=== PATIENT | female | born 1960 | race Caucasian/White ===

== ENCOUNTER → 2017-01-17 | Outpatient (REF) | payer BC ==
[2017-01-17 15:34] LABS: BASO # 0.1 K/mm3 (0.0-0.2); BASO % 0.9 % (0.0-1.0); EOS # 0.3 K/mm3 (0.0-0.50); EOS % 4.4 % (0.0-3.0); LARGE UNSTAINED CELL # 0.1 K/mm3 (0.0-0.4); LARGE UNSTAINED CELL % 1.4 % (0.0-4.0); LYMPH # 2.5 K/mm3 (1.5-4.5); LYMPH % 33.9 % (24.0-44.0); MEAN CORPUSCULAR HEMOGLOBIN 31.6 pg (27.0-33.0); MEAN CORPUSCULAR VOLUME 87.8 fl (80.0-96.0); MONO # 0.5 K/mm3 (0.0-0.8); MONO % 6.4 % (0.0-5.0); NEUTROPHILS # 3.8 K/mm3 (1.8-7.7); PLATELET COUNT, AUTOMATED 324 k/mm3 (150-450); RED CELL DISTRIBUTION WIDTH 12.1 % (11.5-14.5); WHITE BLOOD COUNT 7.2 K/mm3 (4.0-10.0)
[2017-01-17 17:02] LABS: ALBUMIN 3.5 GM/DL (3.2-5.2); ALBUMIN/GLOBULIN RATIO 1.06 (1.00-1.93); ALKALINE PHOSPHATASE 101 U/L (45-117); ALT/SGPT 19 U/L (12-78); ANION GAP 7 MEQ/L (8-16); AST/SGOT 17 U/L (15-37); BILIRUBIN,TOTAL 0.4 MG/DL (0.2-1.0); BLOOD UREA NITROGEN 20 MG/DL (7-18); CALCIUM LEVEL 8.8 MG/DL (8.5-10.1); CARBON DIOXIDE LEVEL 32 MEQ/L (21-32); CHLORIDE LEVEL 103 MEQ/L (98-107); CREATININE FOR GFR 1.03 MG/DL (0.55-1.02); GLOMERULAR FILTRATION RATE 59.4 (>51); GLUCOSE, FASTING 98 MG/DL (70-105); POTASSIUM SERUM 4.1 MEQ/L (3.5-5.1); SODIUM LEVEL 142 MEQ/L (136-145); TOTAL PROTEIN 6.8 GM/DL (6.4-8.2)
== END ==
LOC: M LABDRWLA 14:54
PROVIDERS: ATTEND Family Medicine
DX: I10 Essential (primary) hypertension (principal); E78.5 Hyperlipidemia, unspecified; E55.9 Vitamin D deficiency, unspecified

== ENCOUNTER → 2017-06-08 | Outpatient (REF) | payer BC ==
[~2017-06-08] MED LIST: ASPI325T28 PO; HYDR12CA PO; IRBE150T12 PO; TUMS750C20 PO; VITA100067 PO
== END ==
LOC: M SFHCPLAZ 09:08
PROVIDERS: ATTEND Family Medicine
DX: I10 Essential (primary) hypertension (principal)

== ENCOUNTER 2017-08-18 09:04 | Outpatient (CLI) | payer BC ==
[~2017-08-18] VITALS: Ht 162.6 cm; Wt 77.1 kg
[2017-08-18] MEDS ORDERED: NS 1,000 ML IV ONE (09:45)
[2017-08-18] MEDS ORDERED: PROPOFOL 200 MG/20 ML VIAL As Ordered ONE ×2 (10:21→10:29)
--- NOTE | 2017-08-18 10:57 | ROOR ---
Patient Name: Indy Hinton Procedure Date: 08/18/2017 10:09 AM Date of : 1960 Age: 57 Room: [facility] Gender: Female Note Status: Finalized Procedure: Colonoscopy Indications: Screening for colorectal malignant neoplasm Providers: Jose Montoya MD Referring MD: Nazario Roy MD Requesting Provider: Medicines: Monitored Anesthesia Care Complications: No immediate complications. Procedure: Pre-Anesthesia Assessment: - Prior to the procedure, a History and Physical was performed, and patient medications and allergies were reviewed. The patient is competent. The risks and benefits of the procedure and the sedation options and risks were discussed with the patient. All questions were answered and informed consent was obtained. Patient identification and proposed procedure were verified by the physician, the nurse and the manufacturing quality inspector in the procedure room. Mental Status Examination: alert and oriented. Airway Examination: normal oropharyngeal airway and neck mobility. Respiratory Examination: clear to auscultation. CV Examination: normal. Prophylactic Antibiotics: The patient does not require prophylactic antibiotics. Prior Anticoagulants: The patient has taken no previous anticoagulant or antiplatelet agents. ASA Grade Assessment: II - A patient with mild systemic disease. After reviewing the risks and benefits, the patient was deemed in satisfactory condition to undergo the procedure. The anesthesia plan was to use monitored anesthesia care (MAC). Immediately prior to administration of medications, the patient was re-assessed for adequacy to receive sedatives. The heart rate, respiratory rate, oxygen saturations, blood pressure, adequacy of pulmonary ventilation, and response to care were monitored throughout the procedure. The physical status of the patient was re-assessed after the procedure. The Colonoscope was introduced through the anus and advanced to the terminal ileum, with identification of the appendiceal orifice and IC valve. The colonoscopy was performed without difficulty. The patient tolerated the procedure well. The quality of the bowel preparation was good. The terminal ileum, ileocecal valve, appendiceal orifice, and rectum were photographed. Scope insertion time was 5 minutes. Scope withdrawal time was 12 minutes. The total duration of the procedure was 20 minutes. Findings: The perianal and digital rectal examinations were normal. The terminal ileum appeared normal. A 12 mm polyp was found in the cecum. The polyp was sessile. Area was successfully injected with 6 mL saline for a lift polypectomy. The polyp was removed with a hot snare. Resection and retrieval were complete. To close a defect after polypectomy, one hemostatic clip was successfully placed. There was no bleeding at the end of the procedure. Verification of patient identification for the specimen was done by the physician and nurse using the patient's name, date and medical record number. Estimated blood loss was minimal. A 8 mm polyp was found in the transverse colon. The polyp was sessile. The polyp was removed with a cold snare. Resection and retrieval were complete. Multiple small and large-mouthed diverticula were found in the sigmoid colon. There was no evidence of diverticular bleeding. Non-bleeding external and internal hemorrhoids were found during retroflexion. The hemorrhoids were small. Impression: - The examined portion of the ileum was normal. - One 12 mm polyp in the cecum, removed with a hot snare. Resected and retrieved. Injected. Clip was placed. - One 8 mm polyp in the transverse colon, removed with a cold snare. Resected and retrieved. - Moderate diverticulosis in the sigmoid colon. There was no evidence of diverticular bleeding. - Non-bleeding external and internal hemorrhoids. Recommendation: - Patient has a contact number available for emergencies. The signs and symptoms of potential delayed complications were discussed with the patient. Return to normal activities tomorrow. Written discharge instructions were provided to the patient. - High fiber diet. - Continue present medications. - Await pathology results. - Repeat colonoscopy in 3 - 5 years for surveillance based on pathology results. - Return to GI clinic as previously scheduled on 08/28/2017 at 11:15 AM. - Return to primary care physician. Jose Montoya MD Jose Montoya MD 08/18/2017 10:56:54 AM This report has been signed electronically. Number of Addenda: 0 Note Initiated On: 08/18/2017 10:09 AM Estimated Blood Loss: Estimated blood loss was minimal.
[2017-08-18 11:24] VITALS: BP 127/84
== END 2017-08-18 11:27 | disposition home or self-care (01) ==
LOC: M OPP 09:04
PROVIDERS: ATTEND Internal Medicine Gastroenterology
DX: Z12.11 Encounter for screening for malignant neoplasm of colon (principal); K63.5 Polyp of colon; K57.30 Diverticulosis of large intestine without perforation or abscess without bleeding; K64.8 Other hemorrhoids; K64.4 Residual hemorrhoidal skin tags; I10 Essential (primary) hypertension; J45.909 Unspecified asthma, uncomplicated; R06.83 Snoring; N28.1 Cyst of kidney, acquired; Z78.0 Asymptomatic menopausal state; Z88.2 Allergy status to sulfonamides; Z79.82 Long term (current) use of aspirin; Z79.899 Other long term (current) drug therapy; Z80.0 Family history of malignant neoplasm of digestive organs; Z80.1 Family history of malignant neoplasm of trachea, bronchus and lung; Z80.51 Family history of malignant neoplasm of kidney

== ENCOUNTER → 2017-11-04 | Outpatient (CLI) | payer BC ==
[2017-11-04 09:39] LABS: ESTIMATED AVERAGE GLUCOSE 114 MG/DL (60-110)
[2017-11-04 09:51] LABS: ALBUMIN 3.4 GM/DL (3.2-5.2); ALBUMIN/GLOBULIN RATIO 0.94 (1.00-1.93); ALKALINE PHOSPHATASE 97 U/L (45-117); ALT/SGPT 24 U/L (12-78); ANION GAP 6 MEQ/L (8-16); AST/SGOT 16 U/L (7-37); BILIRUBIN,TOTAL 0.5 MG/DL (0.2-1.0); BLOOD UREA NITROGEN 23 MG/DL (7-18); CARBON DIOXIDE LEVEL 32 MEQ/L (21-32); CHLORIDE LEVEL 104 MEQ/L (98-107); CHOLESTEROL LEVEL 226 MG/DL (<200); CREATININE FOR GFR 1.01 MG/DL (0.55-1.02); FERRITIN 75 NG/ML (8-252); GLOMERULAR FILTRATION RATE > 60.0 (>51); GLUCOSE, FASTING 84 MG/DL (70-105); PERCENT SATURATION 37.8 % (13.2-45.0); POTASSIUM SERUM 4.3 MEQ/L (3.5-5.1); SODIUM LEVEL 142 MEQ/L (136-145); TOTAL IRON BINDING CAPACITY 304 UG/DL (250-450); TRIGLYCERIDES LEVEL 86 MG/DL (<150)
[2017-11-06 10:53] LABS: VITAMIN B12 LEVEL 507 PG/ML (247-911)
== END ==
LOC: M LAB 08:38
DX: E78.2 Mixed hyperlipidemia (principal); Q61.9 Cystic kidney disease, unspecified; I10 Essential (primary) hypertension
CPT/HCPCS: 83550

== ENCOUNTER → 2017-11-14 | Outpatient (CLI) | payer BC | LOC: M WHC 15:39 | DX: Z12.31 Encounter for screening mammogram for malignant neoplasm of breast (principal) ==

== ENCOUNTER → 2018-02-16 | Outpatient (REF) | payer BC | LOC: M LAB REF 11:47 | DX: D23.9 Other benign neoplasm of skin, unspecified (principal) | CPT/HCPCS: 88305 ==

== ENCOUNTER → 2018-03-16 | Outpatient (REF) | payer BC | LOC: M SFHCPLAZ 15:48 | DX: L57.0 Actinic keratosis (principal) | CPT/HCPCS: 88305 ==

== ENCOUNTER 2018-05-13 20:57 | Emergency (ER) | payer BC ==
[2018-05-13] MEDS: LIDOCAINE 1% MDV 20ML VIAL IM (22:45)
[2018-05-13] MEDS: ADACEL/BOOSTRIX VACCINE (DIPHTH/PERTUSS/ACELL/TETANUS)0.5ML SYR (90715) IM (22:51)
== END 2018-05-13 23:50 | disposition home or self-care (01) ==
LOC: M ED 20:57
DX: S61.011A Laceration without foreign body of right thumb without damage to nail, initial encounter (principal); W26.8XXA Contact with other sharp object(s), not elsewhere classified, initial encounter; Y92.099 Unspecified place in other non-institutional residence as the place of occurrence of the external cause; Y93.9 Activity, unspecified; Y99.9 Unspecified external cause status; I10 Essential (primary) hypertension; J45.909 Unspecified asthma, uncomplicated; J44.9 Chronic obstructive pulmonary disease, unspecified; Z79.82 Long term (current) use of aspirin; Z79.899 Other long term (current) drug therapy; Z88.2 Allergy status to sulfonamides
CPT/HCPCS: 90715

== ENCOUNTER → 2018-05-17 | Outpatient (REF) | payer BC ==
[2018-05-17 16:22] LABS: ESTIMATED AVERAGE GLUCOSE 103 MG/DL (60-110); HEMOGLOBIN A1c 5.2 %
[2018-05-17 16:24] LABS: APPEARANCE, URINE CLEAR (CLEAR); BACTERIA, URINE AUTO 1+ (NEGATIVE); BILIRUBIN, URINE AUTO NEGATIVE (NEGATIVE); BLOOD, URINE BLOOD NEGATIVE (NEGATIVE); COLOR, URINE YELLOW (YELLOW); GLUCOSE, URINE (UA) AUTO NEGATIVE (NEGATIVE); KETONE, URINE AUTO NEGATIVE (NEGATIVE); LEUKOCYTE ESTERASE, URINE AUTO NEGATIVE (NEGATIVE); MUCUS, URINE SMALL (NEGATIVE); NITRITE, URINE AUTO NEGATIVE (NEGATIVE); PROTEIN, URINE AUTO NEGATIVE (NEGATIVE); RBC, URINE AUTO 1 /HPF (0-3); SPECIFIC GRAVITY URINE AUTO 1.015 (1.002-1.035); SQUAMOUS EPITHELIAL CELL UR AU 0 /HPF (0-6); UROBILINOGEN, URINE AUTO 0.2 mg/dL (0.0-2.0); WBC, URINE AUTO 1 /HPF (0-3)
[2018-05-17 16:30] LABS: PTH INTACT 40.2 PG/ML (18.5-88.0)
[2018-05-17 16:35] LABS: ALBUMIN 3.7 GM/DL (3.2-5.2); ALBUMIN/GLOBULIN RATIO 1.09 (1.00-1.93); ALKALINE PHOSPHATASE 105 U/L (45-117); ALT/SGPT 23 U/L (12-78); ANION GAP 9 MEQ/L (8-16); AST/SGOT 17 U/L (7-37); BILIRUBIN,TOTAL 0.7 MG/DL (0.2-1.0); BLOOD UREA NITROGEN 22 MG/DL (7-18); CALCIUM LEVEL 9.1 MG/DL (8.5-10.1); CARBON DIOXIDE LEVEL 30 MEQ/L (21-32); CHLORIDE LEVEL 101 MEQ/L (98-107); CREATININE FOR GFR 1.05 MG/DL (0.55-1.30); GLOMERULAR FILTRATION RATE 57.7 (>51); GLUCOSE, FASTING 94 MG/DL (70-100); SODIUM LEVEL 140 MEQ/L (136-145); TOTAL PROTEIN 7.1 GM/DL (6.4-8.2)
[2018-05-17 16:45] LABS: MALB URINE SIEMENS 79.3 MG/L; MAU/CREAT RATIO 62.9 MCG/MG (0.0-30.0)
[2018-05-25 13:34] LABS: INSULIN LEVEL 8.9 uIU/mL (2.6-24.9)
== END ==
LOC: M SFHCPLAZ 15:39
DX: E55.9 Vitamin D deficiency, unspecified (principal); R73.01 Impaired fasting glucose
CPT/HCPCS: 83525

== ENCOUNTER → 2018-10-25 | Outpatient (REF) | payer BC ==
[~2018-10-25] MED LIST changes: +ASPI-222 PO; -ASPI325T28 PO
[2018-10-25 12:14] LABS: BASO # 0.1 10^3/uL (0.0-0.2); BASO % 1.2 % (0.0-1.0); EOS # 0.2 10^3/uL (0.0-0.50); EOS % 2.9 % (0.0-3.0); HEMATOCRIT 44.4 % (36.0-47.0); LYMPH # 1.9 10^3/uL (1.5-4.5); MEAN CORPUSCULAR HEMOGLOBIN 30.2 pg (27.0-33.0); MEAN CORPUSCULAR HGB CONC 33.8 g/dl (32.0-36.5); MEAN CORPUSCULAR VOLUME 89.3 fl (80.0-96.0); MONO # 0.6 10^3/uL (0.0-0.8); NEUTROPHILS # 4.1 10^3/uL (1.8-7.7); NEUTROPHILS % 59.8 % (36.0-66.0); PLATELET COUNT, AUTOMATED 330 10^3/uL (150-450); RED BLOOD COUNT 4.97 10^6/uL (4.00-5.40); WHITE BLOOD COUNT 6.9 10^3/uL (4.0-10.0)
[2018-10-25 12:26] LABS: ALBUMIN 3.8 GM/DL (3.2-5.2); ALT/SGPT 22 U/L (12-78); BILIRUBIN,TOTAL 0.5 MG/DL (0.2-1.0); BLOOD UREA NITROGEN 23 MG/DL (7-18); C REACTIVE PROTEIN QUANTITATIV < 0.30 MG/DL (0.00-0.30); CALCIUM LEVEL 8.9 MG/DL (8.5-10.1); CARBON DIOXIDE LEVEL 29 MEQ/L (21-32); CHLORIDE LEVEL 102 MEQ/L (98-107); CHOLESTEROL LEVEL 228 MG/DL (<200); CREATININE FOR GFR 1.19 MG/DL (0.55-1.30); FREE T4 1.13 NG/DL (0.76-1.46); GLUCOSE, FASTING 93 MG/DL (70-100); HDL CHOLESTEROL 82 MG/DL (>40); LDL CHOLESTEROL 132 MG/DL (<100); NON-HDL-C 146 MG/DL; POTASSIUM SERUM 4.3 MEQ/L (3.5-5.1); SODIUM LEVEL 139 MEQ/L (136-145); TRIGLYCERIDES LEVEL 72 MG/DL (<150)
[2018-10-25 12:35] LABS: HEMOGLOBIN A1c 5.5 %
== END ==
LOC: M SFHCPLAZ 08:16
PROVIDERS: ATTEND Family Medicine
DX: I10 Essential (primary) hypertension (principal); R73.01 Impaired fasting glucose; E78.2 Mixed hyperlipidemia

== ENCOUNTER → 2019-05-14 | Outpatient (CLI) | payer BC ==
--- NOTE | 2019-05-14 22:45 | REP ---
Clinical: IUD positioning . Technique: Transabdominal pelvic ultrasound followed by transvaginal examination for better evaluation of the endometrium and adnexa. Findings: Bladder is unremarkable and measures 7.7 x 7.4 x 5.6 cm . Anteverted bicornuate appearing uterus measures 8.5 x 2.5 x 6.2 cm . The endometrial complex measures 4.7 mm thickness. IUD identified within the left uterine horn. Bilateral ovaries are normal in appearance. Right ovary measures 2.3 x 1.7 x 2.2 cm ; Left ovary measures 2.2 x 1.4 x 1.2 cm. No pelvic fluid or adnexal mass lesion. Impression: 1. 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
== END ==
LOC: M WHC 13:59
PROVIDERS: ATTEND Midwife
DX: Z30.430 Encounter for insertion of intrauterine contraceptive device (principal)

== ENCOUNTER → 2019-05-24 | Outpatient (REF) | payer BC ==
[2019-05-24 12:16] LABS: BASO # 0.1 10^3/uL (0.0-0.2); EOS # 0.2 10^3/uL (0.0-0.50); EOS % 4.7 % (0.0-3.0); HEMATOCRIT 42.4 % (36.0-47.0); HEMOGLOBIN 14.6 g/dl (12.0-15.5); LYMPH # 1.9 10^3/uL (1.5-4.5); LYMPH % 36.5 % (24.0-44.0); MEAN CORPUSCULAR HEMOGLOBIN 31.1 pg (27.0-33.0); MEAN CORPUSCULAR HGB CONC 34.4 g/dl (32.0-36.5); MEAN CORPUSCULAR VOLUME 90.4 fl (80.0-96.0); MONO # 0.4 10^3/uL (0.0-0.8); NEUTROPHILS # 2.6 10^3/uL (1.8-7.7); NEUTROPHILS % 49.6 % (36.0-66.0); PLATELET COUNT, AUTOMATED 331 10^3/uL (150-450); RED BLOOD COUNT 4.69 10^6/uL (4.00-5.40); WHITE BLOOD COUNT 5.2 10^3/uL (4.0-10.0)
[2019-05-24 12:20] LABS: APPEARANCE, URINE CLEAR (CLEAR); BACTERIA, URINE AUTO NEGATIVE (NEGATIVE); BILIRUBIN, URINE AUTO NEGATIVE (NEGATIVE); BLOOD, URINE BLOOD 1+ (NEGATIVE); COLOR, URINE YELLOW (YELLOW); GLUCOSE, URINE (UA) AUTO NEGATIVE (NEGATIVE); KETONE, URINE AUTO NEGATIVE (NEGATIVE); LEUKOCYTE ESTERASE, URINE AUTO NEGATIVE (NEGATIVE); NITRITE, URINE AUTO NEGATIVE (NEGATIVE); PROTEIN, URINE AUTO NEGATIVE (NEGATIVE); RBC, URINE AUTO 0 /HPF (0-3); SPECIFIC GRAVITY URINE AUTO 1.012 (1.002-1.035); SQUAMOUS EPITHELIAL CELL UR AU 0 /HPF (0-6); UROBILINOGEN, URINE AUTO 0.2 mg/dL (0.0-2.0); WBC, URINE AUTO 1 /HPF (0-3)
[2019-05-24 12:56] LABS: MALB URINE SIEMENS 28.3 MG/L; MAU/CREAT RATIO 24.3 MCG/MG (0.0-30.0)
[2019-05-24 13:00] LABS: ALBUMIN 3.5 GM/DL (3.2-5.2); BILIRUBIN,TOTAL 0.4 MG/DL (0.2-1.0); CALCIUM LEVEL 9.4 MG/DL (8.5-10.1); CREATININE FOR GFR 1.16 MG/DL (0.55-1.30); GLOMERULAR FILTRATION RATE 51.3 (>51); POTASSIUM SERUM 3.7 MEQ/L (3.5-5.1); TOTAL PROTEIN 6.6 GM/DL (6.4-8.2)
[2019-05-24 13:23] LABS: PTH INTACT 38.2 PG/ML (18.5-88.0); TOTAL 25(OH) VITAMIN D 60.4 NG/ML (30.0-100.0)
[2019-05-24 13:55] LABS: HEMOGLOBIN A1c 5.6 %
== END ==
LOC: M SFHCADAM 08:36
PROVIDERS: ATTEND Family Medicine
DX: Q61.9 Cystic kidney disease, unspecified (principal); R73.01 Impaired fasting glucose

== ENCOUNTER → 2019-05-24 | Outpatient (CLI) | payer BC ==
--- NOTE | 2019-05-24 15:50 | REPMRS ---
Patient History The patient states she has not had a clinical breast exam in over a year. Patient is postmenopausal and had first child at age 33. Family history of colorectal cancer at age 50 or over in paternal grandfather. No Hormone Replacement Therapy 3D TOMOSYNTHESIS WAS PERFORMED. The [facility] lifetime risk for breast cancer is 6.9%. Digital Woman Screen Mammo: May 24, 2019 - Exam #: [id number] Bilateral CC and MLO view(s) were taken. Technologist: Stacy Perkins, Technologist Prior study comparison: November 14, 2017, digital woman screen mammo performed at [facility]. December 25, 2015, digital woman screen mammo performed at [facility]. FINDINGS: The breast tissue is heterogeneously dense. This may lower the sensitivity of mammography. There has been no change in the appearance of the mammogram from the prior studies. There is a moderate amount of residual fibroglandular tissue which is fairly symmetric. There is no interval development of dominant mass, areas of architectural distortion, or clustered microcalcification typical of malignancy. Assessment: BI-RADS/ACR category 1 mammogram. Negative Mammogram. Recommendation Routine screening mammogram in 1 year (for women over age 40). This mammogram was interpreted with the aid of an FDA-approved computer-aided dectection system. Electronically Signed By: Alireza Hamilton MD 05/24/19 [id number]
--- NOTE | 2019-05-28 15:48 | DEXA ---
AP SPINE L1 - L4 1.029 -1.3 -0.4 LT FEMUR TOTAL 0.981 -0.2 0.5 LT NECK 0.887 -1.1 0.0 RT FEMUR TOTAL 1.056 0.4 1.1 RT NECK 0.905 -1.0 0.1 TOTAL BODY TOTAL OTHER COMMENTS: There is low bone density of the spine and hips. The density of the spine has decreased 5.9% since 12/25/2015. The density of the left hip has increased 1.6% since 12/25/2015. The density of the right hip has increased 1.9% since 12/25/2015. The decreased density of the spine does represent a significant change. The increased density of the left hip does not represent a significant change. The increased density of the right hip does not represent a significant change. FOLLOW-UP: Recommendation for the next bone density exam: 2 years. VINICIO
== END ==
LOC: M WHC 14:41
PROVIDERS: ATTEND Family Medicine
DX: Z12.31 Encounter for screening mammogram for malignant neoplasm of breast (principal); M85.80 Other specified disorders of bone density and structure, unspecified site; E55.9 Vitamin D deficiency, unspecified; Z78.0 Asymptomatic menopausal state

== ENCOUNTER → 2019-10-23 | Outpatient (REF) | payer BC ==
[~2019-10-23] MED LIST changes: -ASPI-222 PO; +ASPI-527 PO
[2019-10-23 12:47] LABS: BASO # 0.1 10^3/uL (0.0-0.2); BASO % 0.6 % (0.0-1.0); EOS # 0.3 10^3/uL (0.0-0.5); EOS % 2.6 % (0.0-3.0); HEMATOCRIT 45.2 % (36.0-47.0); HEMOGLOBIN 14.8 g/dl (12.0-15.5); LYMPH % 18.8 % (24.0-44.0); MEAN CORPUSCULAR HEMOGLOBIN 29.5 pg (27.0-33.0); MEAN CORPUSCULAR HGB CONC 32.7 g/dl (32.0-36.5); MEAN CORPUSCULAR VOLUME 90.2 fl (80.0-96.0); MONO # 0.8 10^3/uL (0.0-0.8); MONO % 7.1 % (0.0-5.0); NEUTROPHILS # 7.6 10^3/uL (1.5-8.5); NEUTROPHILS % 70.4 % (36.0-66.0); PLATELET COUNT, AUTOMATED 352 10^3/uL (150-450); RED BLOOD COUNT 5.01 10^6/uL (4.00-5.40); WHITE BLOOD COUNT 10.8 10^3/uL (4.0-10.0)
[2019-10-23 13:16] LABS: CREATININE,RANDOM URINE 36.1 MG/DL; TOTAL PROTEIN,RANDOM URINE 18.2 MG/DL (0.0-12.0)
[2019-10-23 13:20] LABS: HEMOGLOBIN A1c 5.8 %
[2019-10-23 13:24] LABS: ALBUMIN 3.5 GM/DL (3.2-5.2); ALT/SGPT 29 U/L (12-78); BILIRUBIN,TOTAL 0.6 MG/DL (0.2-1.0); BLOOD UREA NITROGEN 16 MG/DL (7-18); CALCIUM LEVEL 9.3 MG/DL (8.5-10.1); CARBON DIOXIDE LEVEL 30 MEQ/L (21-32); CHLORIDE LEVEL 101 MEQ/L (98-107); CHOLESTEROL LEVEL 235 MG/DL (<200); CHOLESTEROL RISK RATIO 2.611 (<5); CREATININE FOR GFR 0.99 MG/DL (0.55-1.30); GLOMERULAR FILTRATION RATE > 60.0 (>51); GLUCOSE, FASTING 80 MG/DL (70-100); HDL CHOLESTEROL 90 MG/DL (>40); LDL CHOLESTEROL 133 MG/DL (<100); NON-HDL-C 145 MG/DL; POTASSIUM SERUM 4.1 MEQ/L (3.5-5.1); SODIUM LEVEL 138 MEQ/L (136-145); TOTAL PROTEIN 6.9 GM/DL (6.4-8.2); TRIGLYCERIDES LEVEL 62 MG/DL (<150)
== END ==
LOC: M SFHCPLAZ 09:13
PROVIDERS: ATTEND Family Medicine
DX: R73.01 Impaired fasting glucose (principal); E78.2 Mixed hyperlipidemia; I10 Essential (primary) hypertension

== ENCOUNTER → 2020-04-21 | Outpatient (REF) | payer BC ==
[~2020-04-21] MED LIST changes: -IRBE150T12 PO; +IRBE150T7 PO
== END ==
LOC: M SFHCPLAZ 09:36
PROVIDERS: ATTEND Family Medicine
DX: L90.5 Scar conditions and fibrosis of skin (principal)

== ENCOUNTER → 2020-06-17 | Outpatient (CLI) | payer BC ==
--- NOTE | 2020-07-06 14:11 | REPMRS ---
Patient History The patient states she had a clinical breast exam in May 2020.Patient is postmenopausal and had first child at age 33. Family history of colorectal cancer at age 50 or over in paternal grandfather. No Hormone Replacement Therapy Digital Woman Screen Mammo: June 17, 2020 - Exam #: [id number] Bilateral CC and MLO view(s) were taken. Technologist: Lenka Waldrop, Technologist Prior study comparison: May 24, 2019, bilateral digital woman screen mammo performed at [facility]. November 14, 2017, digital woman screen mammo performed at [facility]. December 25, 2015, digital woman screen mammo performed at [facility]. FINDINGS: There are scattered fibroglandular densities. The Volpara volumetric breast density category is:B. There has been no change in the appearance of the mammogram from the prior studies. There is a mild amount of scattered fibroglandular density which is fairly symmetric. There is no interval development of dominant mass, architectural distortion, or grouped microcalcification suggestive of malignancy. 3-D tomosynthesis shows no additional findings. Assessment: BI-RADS/ACR category 1 mammogram. Negative Mammogram. Recommendation Routine screening mammogram of both breasts in 1 year (for women over age 40). This patient's Lifetime Breast Cancer Risk is estimated at 6.8 %. This mammogram was interpreted with the aid of an FDA-approved computer-aided dectection system. Electronically Signed By: Shahbaz Myles MD 07/06/20 [id number]
== END ==
LOC: M WHC 07:57
PROVIDERS: ATTEND Family Medicine
DX: Z12.31 Encounter for screening mammogram for malignant neoplasm of breast (principal); Z78.0 Asymptomatic menopausal state

== ENCOUNTER → 2020-09-05 | Outpatient (CLI) | payer BC ==
[2020-09-05 11:08] LABS: APPEARANCE, URINE CLEAR (CLEAR); BACTERIA, URINE AUTO NEGATIVE (NEGATIVE); BILIRUBIN, URINE AUTO NEGATIVE (NEGATIVE); BLOOD, URINE BLOOD 1+ (NEGATIVE); COLOR, URINE YELLOW (YELLOW); GLUCOSE, URINE (UA) AUTO NEGATIVE (NEGATIVE); KETONE, URINE AUTO NEGATIVE (NEGATIVE); LEUKOCYTE ESTERASE, URINE AUTO NEGATIVE (NEGATIVE); MUCUS, URINE SMALL (NEGATIVE); NITRITE, URINE AUTO NEGATIVE (NEGATIVE); PROTEIN, URINE AUTO NEGATIVE (NEGATIVE); RBC, URINE AUTO 5 /HPF (0-3); SPECIFIC GRAVITY URINE AUTO 1.013 (1.002-1.035); SQUAMOUS EPITHELIAL CELL UR AU 1 /HPF (0-6); UROBILINOGEN, URINE AUTO 0.2 mg/dL (0.0-2.0); WBC, URINE AUTO 0 /HPF (0-3)
[2020-09-05 11:24] LABS: HEMOGLOBIN A1c 5.1 %
[2020-09-05 11:38] LABS: ALBUMIN 3.3 GM/DL (3.2-5.2); ALT/SGPT 27 U/L (12-78); BILIRUBIN,TOTAL 0.4 MG/DL (0.2-1.0); BLOOD UREA NITROGEN 25 MG/DL (7-18); CARBON DIOXIDE LEVEL 32 MEQ/L (21-32); CHLORIDE LEVEL 105 MEQ/L (98-107); CREATININE FOR GFR 0.98 MG/DL (0.55-1.30); GLOMERULAR FILTRATION RATE > 60.0 (>51); GLUCOSE, FASTING 78 MG/DL (70-100); POTASSIUM SERUM 4.4 MEQ/L (3.5-5.1); SODIUM LEVEL 141 MEQ/L (136-145); TOTAL PROTEIN 6.4 GM/DL (6.4-8.2)
[2020-09-05 11:46] LABS: CREATININE, URINE 70.6 MG/DL; MALB URINE SIEMENS 39.5 MG/L; MAU/CREAT RATIO 55.9 MCG/MG (0.0-30.0)
[2020-09-07 11:09] LABS: PTH INTACT 49.8 PG/ML (18.5-88.0); TOTAL 25(OH) VITAMIN D 64.7 NG/ML (30.0-100.0)
== END ==
LOC: M LAB 09:38
PROVIDERS: ATTEND Family Medicine
DX: E55.9 Vitamin D deficiency, unspecified (principal); R73.01 Impaired fasting glucose

== ENCOUNTER → 2021-02-06 | Outpatient (CLI) | payer BC ==
[2021-02-06 10:31] LABS: BASO # 0.1 10^3/uL (0.0-0.2); BASO % 1.2 % (0.0-1.0); EOS # 0.3 10^3/uL (0.0-0.5); EOS % 5.1 % (0.0-3.0); HEMATOCRIT 43.3 % (36.0-47.0); HEMOGLOBIN 14.2 g/dl (12.0-15.5); LYMPH # 2.1 10^3/uL (1.5-5.0); LYMPH % 34.3 % (24.0-44.0); MEAN CORPUSCULAR HEMOGLOBIN 29.5 pg (27.0-33.0); MEAN CORPUSCULAR HGB CONC 32.8 g/dl (32.0-36.5); MEAN CORPUSCULAR VOLUME 89.8 fl (80.0-96.0); MONO # 0.6 10^3/uL (0.0-0.8); MONO % 9.4 % (2.0-8.0); NEUTROPHILS % 49.8 % (36.0-66.0); PLATELET COUNT, AUTOMATED 303 10^3/uL (150-450); RED BLOOD COUNT 4.82 10^6/uL (4.00-5.40); WHITE BLOOD COUNT 6.1 10^3/uL (4.0-10.0)
[2021-02-06 10:55] LABS: HEMOGLOBIN A1c 5.2 %
[2021-02-06 11:04] LABS: ALBUMIN 3.4 GM/DL (3.2-5.2); ALT/SGPT 27 U/L (12-78); BILIRUBIN,TOTAL 0.5 MG/DL (0.2-1.0); BLOOD UREA NITROGEN 19 MG/DL (7-18); CALCIUM LEVEL 8.9 MG/DL (8.5-10.1); CARBON DIOXIDE LEVEL 30 MEQ/L (21-32); CHLORIDE LEVEL 106 MEQ/L (98-107); CHOLESTEROL LEVEL 219 MG/DL (<200); CHOLESTEROL RISK RATIO 2.281 (<5); CREATININE FOR GFR 0.86 MG/DL (0.55-1.30); GLOMERULAR FILTRATION RATE > 60.0 (>51); GLUCOSE, FASTING 86 MG/DL (70-100); HDL CHOLESTEROL 96 MG/DL (>40); LDL CHOLESTEROL 113 MG/DL (<100); MAGNESIUM LEVEL 2.3 MG/DL (1.8-2.4); NON-HDL-C 123 MG/DL; POTASSIUM SERUM 4.3 MEQ/L (3.5-5.1); SODIUM LEVEL 140 MEQ/L (136-145); TOTAL PROTEIN 6.5 GM/DL (6.4-8.2); TRIGLYCERIDES LEVEL 48 MG/DL (<150)
== END ==
LOC: M LAB 09:41
PROVIDERS: ATTEND Family Medicine
DX: Q61.9 Cystic kidney disease, unspecified (principal); R73.01 Impaired fasting glucose; E78.2 Mixed hyperlipidemia

== ENCOUNTER → 2021-05-18 | Outpatient (REF) | payer BC | LOC: M LAB REF 19:08 | PROVIDERS: ATTEND Family Medicine | DX: L57.0 Actinic keratosis (principal) ==

== ENCOUNTER → 2021-07-18 | Outpatient (CLI) | payer BC ==
[2021-07-18 10:44] LABS: APPEARANCE, URINE CLEAR (CLEAR); BACTERIA, URINE AUTO NEGATIVE (NEGATIVE); BILIRUBIN, URINE AUTO NEGATIVE (NEGATIVE); BLOOD, URINE BLOOD NEGATIVE (NEGATIVE); COLOR, URINE YELLOW (YELLOW); GLUCOSE, URINE (UA) AUTO NEGATIVE (NEGATIVE); KETONE, URINE AUTO NEGATIVE (NEGATIVE); LEUKOCYTE ESTERASE, URINE AUTO NEGATIVE (NEGATIVE); MUCUS, URINE SMALL (NEGATIVE); NITRITE, URINE AUTO NEGATIVE (NEGATIVE); PROTEIN, URINE AUTO 1+ mg/dL (NEGATIVE); RBC, URINE AUTO 1 /HPF (0-3); SPECIFIC GRAVITY URINE AUTO 1.015 (1.002-1.035); SQUAMOUS EPITHELIAL CELL UR AU 2 /HPF (0-6); UROBILINOGEN, URINE AUTO 0.2 mg/dL (0.0-2.0); WBC, URINE AUTO 0 /HPF (0-3)
[2021-07-18 11:08] LABS: ALBUMIN 3.4 GM/DL (3.2-5.2); ALT/SGPT 27 U/L (12-78); BILIRUBIN,TOTAL 0.5 MG/DL (0.2-1.0); BLOOD UREA NITROGEN 15 MG/DL (7-18); CALCIUM LEVEL 9.3 MG/DL (8.5-10.1); CARBON DIOXIDE LEVEL 33 MEQ/L (21-32); CHLORIDE LEVEL 105 MEQ/L (98-107); CREATININE FOR GFR 0.98 MG/DL (0.55-1.30); GLOMERULAR FILTRATION RATE > 60.0 (>51); GLUCOSE, FASTING 92 MG/DL (70-100); SODIUM LEVEL 141 MEQ/L (136-145); TOTAL PROTEIN 6.8 GM/DL (6.4-8.2)
[2021-07-18 11:16] LABS: MAU/CREAT RATIO 97.3 MCG/MG (0.0-30.0)
[2021-07-19 13:49] LABS: PTH INTACT 41.3 PG/ML (18.5-88.0); TOTAL 25(OH) VITAMIN D 35.3 NG/ML (30.0-100.0)
== END ==
LOC: M LAB 10:18
PROVIDERS: ATTEND Family Medicine
DX: I10 Essential (primary) hypertension (principal)

== ENCOUNTER → 2021-08-18 | Outpatient (CLI) | payer BC | LOC: M LABSMTC 10:23 | PROVIDERS: ATTEND Anesthesiology | DX: Z01.818 Encounter for other preprocedural examination (principal); Z11.52 Encounter for screening for COVID-19 ==

== ENCOUNTER 2021-08-23 09:02 | Day surgery (SDC) | payer BC ==
[~2021-08-23] VITALS: Ht 165.1 cm; Wt 80.0 kg
[~2021-08-23 09:02] MED LIST changes: +NS 1,000 ML IV ONE
--- OUTSIDE RECORDS SUMMARY | 2021-08-23 09:05 | CCD | Continuity of Care Document ---
Author Author Indy RODRIGUEZ [facility] Organization Unknown Address [address], [address] [place] [address] Phone [phone] Care Team Providers Care Program Manager Rn Name Role Phone Nazario Roy M.D. AUTM [phone] Problems Active Problems Provider Date Essential hypertension Jose Montoya M.D. Onset: 06/06 Social History Type Date Description Comments Sex Unknown ETOH Use 2 A Week Tobacco Use Start: Unknown Non Smoker Allergies, Adverse Reactions, Alerts Active Allergies Criticality Reaction | Severity Comments Date Sulfa Unable to assess criticality 06/21/2017 Epinephrine Unable to assess criticality 06/24/2021 Medications Active Medications SIG Qnty Indications Ordering Provide r Date Clenpiq 10-3.5-12mg-GM -GM/160ML S olution take as directed per doctor's bowel prep instructions. 320ml Z12.1 1 Emmanuel Cabrera MD 06/24/[address] take 4 tabs by mouth prior to procedure per instructions. 4tabs Z12.11 Emmanuel Cabrera MD 06/24/2021 Hydrochlorothiazide 12.5mg Tablets take one tab by mouth every day. Unknown 00/[address] 1 by mouth every day Unknown Vitamin D (Ergocalciferol) 5000Unit Capsules daily Unknown Tums 500mg Chewtabs 2 daily Unknown Irbesartan 150mg Tablets 1 by mouth every day Unknown Immunizations Description No Information Available Vital Signs Date Vital Result Comment 06/24/2021 11:21am BP Systolic 122 mmHg BP Diastolic 82 mmHg Height 65 inches 5'5" Weight 181.00 lb BMI (Body Mass Index) 30.1 kg/m2 [place] Body Weight 125 lb Weight 82.102 kg BSA (Body Surface Area) 1.90 m2 06/21/2017 9:51am BP Systolic 118 mmHg BP Diastolic 64 mmHg Height 65 inches 5'5" Weight 173.00 lb BMI (Body Mass Index) 28.8 kg/m2 [place] Body Weight 125 lb Weight 78.473 kg BSA (Body Surface Area) 1.86 m2 Results Description No Information Available Procedures Description No Information Available Medical Devices Description No Information Available Encounters Description No Information Available Assessments Date Code Description Provider 06/24/2021 Z12.11 Encounter for screening for kyle gnant neoplasm of colon JOHNIE Arce 06/24/2021 Z86.010 Personal history of colonic poly ps JOHNIE Arce 06/24/2021 Z80.0 Family history of malignant neop lasm of digestive organs JOHNIE Arce Plan of Treatment Future Appointment(s):* 08/23/2021 2:00 am - Jose Montoya M.D. at [facility] 06/24/2021 - JOHNIE Arce* Z12.11 Encounter for screening for malignant neoplasm of colon * Z86.010 Personal history of colonic polyps * Z80.0 Family history of malignant neoplasm of digestive organs * * New Medication:* Clenpiq 10-3.5-12 mg-GM -GM/160ML * Dulcolax 5 mg * New Orders:* Colonoscopy, Ordered: 06/24/21 * Comments:* Will arrange for colonoscopy. Reviewed risks and benefits of the procedure, as well as other options, with the patient. Bowel prep procedure was discussed with patient, as well as risks and side effects associated with the bowel prep. Patient verbalized understanding of all of the above and is in agreement to proceed. Patient will seek medical attention for any acute changes. Will monitor. * Follow up:* As scheduled, sooner if needed. Functional Status Description No Information Available Mental Status Description No Information Available Referrals Description No Information Available
--- OUTSIDE RECORDS SUMMARY | 2021-08-23 09:05 | CCD | Continuity of Care Document ---
Author Author Indy RODRIGUEZ [facility] Organization Unknown Address [address], [address] [place] [address] Phone [phone] Care Team Providers Care Network Desktop Support Specialist Name Role Phone Nazario Roy M.D. AUTM [phone] Problems Active Problems Provider Date Essential hypertension [...] lb BMI (Body Mass Index) 30.1 kg/m2 [place] Body Weight 125 lb Weight 82.102 kg BSA (Body Surface Area) 1.90 m2 06/21/2017 9:51am BP Systolic 118 mmHg BP Diastolic 64 mmHg Height 65 inches 5'5" Weight 173.00 lb BMI (Body Mass Index) 28.8 kg/m2 [place] Body Weight 125 lb Weight 78.473 kg [...] digestive organs JOHNIE Arce Plan of Treatment 06/24/2021 - JOHNIE Arce* Z12.11 Encounter for [...]
--- OUTSIDE RECORDS SUMMARY | 2021-08-23 09:05 | CCD ---
Author Author [facility] Organization [facility] Address Unknown Phone Unavailable Care Team Providers Care Course Developer Name Role Phone Nazario Roy Unavailable PROBLEMS Type Condition ICD9-CM Code [id number] Code Onset Dates Condition S tatus W/U Status Risk SNOMED Code Notes Problem Mixed hyperlipidemia E78.2 Active confirmed 263477190 Problem Hypertension I10 Active confirmed 4429008 3 Problem Overweight E66.3 Active confirmed 255838401 Problem Breast cancer screening Z12.39 Active confirmed 055165352 Problem Borderline osteopenia M85.80 Active confirmed 718953443 Problem Vitamin D deficiency E55.9 Active confirmed 09318018 Problem 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 Active confirmed 2389 80436 Problem AK (actinic keratosis) L57.0 Active confirmed 070292266 Problem Recurrent UTI N39.0 Active confirmed 024078 001 Problem Primary osteoarthritis, right hand M19.041 Activ e confirmed 24049720 Problem Colon cancer screening Z12.11 Active confirmed 106998692 Problem Nummular eczema L30.0 Active confirmed 8141 8003 Problem 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 Active confirmed 23557809 Problem Cystic kidney disease Q61.9 Active confirmed 588492819 Problem Cervical cancer screening Z12.4 Active confirmed 294510936 Problem Family history of renal cancer Z80.51 Active confir med 451986684 Problem Asthma, mild persistent J45.30 Active confirmed 565147336 Problem Primary osteoarthritis of left hand M19.042 Acti ve confirmed 62315694 Problem Venous insufficiency of both lower extremities I87 .2 Active confirmed 554093628 Problem IFG (impaired fasting glucose) R73.01 Active confir med 660618482 Problem Hx of colonic polyp Z86.010 Active confirmed 971878613 ALLERGIES Allergen (clinical drug ingredient) Drug/Non Drug Allergy do cumented on EMR Reaction Allergy Type Onset Date Status Sulfa (for allergy use only) Lips and facial swelling Drug Allergy Active lidocaine Lidocaine([facility] Code:[address]-84) welts and itching Drug A llergy Active ENCOUNTERS from 1960 to 2021-07-23 Encounter Location Date Provider Diagnosis [facility] [address] [phone] [place] [address] 16 Jul, 2021 Nazario Kriill AK (actinic keratosis) L57.0 ; Hypertension I10 ; Nummular eczema L30.0 ; Hx of colonic polyp Z86.010 ; IFG (impaired fasting glucose) R73.01 ; Primary osteoarthritis of left hand M19.042 ; Colon cancer screening Z12.11 ; Mixed hyperlipidemia E78.2 ; Recurrent UTI N39.0 ; 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 ; Cystic kidney disease Q61.9 ; Borderline osteopenia M85.80 ; Asthma, mild persistent J45.30 ; Breast cancer screening Z12.39 ; Overweight E66.3 ; 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 ; Vitamin D deficiency E55.9 ; Family history of renal cancer Z80.51 ; Primary osteoarthritis, right hand M19.041 ; Venous insufficiency of both lower extremities I87.2 and Cervical cancer screening Z12.4 IMMUNIZATIONS Vaccine Route Administration Date Status Influenza Pharmacy Given IM Intramuscular Oct 12, 2019 Admini stered Influenza 18 yrs & older Flublok IM Intramuscular Oct 25, 2018 Administered Pneumococcal 0.5mL Prevnar 13 IM Intramuscular Nov 02, 2015 A dministered Influenza 6mo & up Fluzone IM Intramuscular Nov 29, 2013 Admi nistered Influenza 6mo & up Fluzone IM Intramuscular Aug 10, 2010 Admi nistered SOCIAL HISTORY Tobacco Use: Social History Observation Description Date Details (start date - stop date) Never Smoker Sex Assigned At : Social History Observation Description Sex Assigned At Unknown Language: Question Answer Notes Languages spoken: Polish Mandaeism: Question Answer Notes Mandaeism 13 [employer] Sexual Hx: Question Answer Notes Had sex in the last 12 months (vaginal, oral, or anal)? Yes Have you ever had an STD? No with Men only Use protection? No Alcohol Screening: Question Answer Notes Did you have a drink containing alcohol in the past year? Ye s Points 3 Interpretation Positive How often did you have six or more drinks on one occas ion in the past year? Never (0 points) How many drinks did you have on a typica l day when you were drinking in the past year? 3 or 4 (1 point) How often did you have a drink containing alcohol in t he past year? Two to four times a month (2 points) BMI Care Goal Follow-Up Question Answer Notes Above Normal BMI Follow-Up Giving encouragement to exercise Tobacco Use: Question Answer Notes Are you a: never smoker never smoker REASON FOR REFERRAL No Information VITAL SIGNS Weight 176 lbs Jul, Weight-kg 79.83 kg Jul, Height 65 in Jul, BMI 29.28 kg/m2 Jul, Heart Rate 84 /min Jul, Respiratory Rate 20 /min Jul, Temperature 98.3 degrees Fahrenheit Jul, Oximetry 98% Jul, Blood pressure systolic 120 mm Hg Jul, Blood pressure diastolic 78 mm Hg Jul, MEDICATIONS Medication SIG (Take, Route, Frequency, Duration) Notes Start Da te End Date Status Irbesartan 150 MG 1 tablet Orally at bedtime for 90 day(s) Active Xopenex HFA 45 MCG/ACT 2 puffs as needed Inhalation every 8 hrs prn wheeze for 90 day(s) Active Aspirin 325 MG 1 tablet Orally Once a day Active Vitamin D 5000 1 tab Orally Once a day for 90 Active Tums Ultra 1000 1000 MG 1 tablet Orally once daily Active Clobetasol Propionate 0.05 % 1 application to affected area Externally Twice a day x 5 days mamxium to psoriasis plaque for 30 day(s) Active Hydrochlorothiazide 12.5 MG 1 tablet Orally Once a day for 90 day(s) Active Peak Flow Meter _ as directed _ qd A ctive Ammonium Lactate 12 % 1 application to affected area Externally Twi ce a day Active PROCEDURES No Information RESULTS No Results REASON FOR VISIT 5 month MEDICAL (GENERAL) HISTORY Type Description Date Medical History asthma, mild intermittent, e nvironmentally induced specifically dog IgE 42, -HP panel Medical History hypertension, essential Medical History history of recurrent UTI/his tory of reimplantation of ureters at age 7/microscopic hematuria, chronic-with stable cystoscopy per Dr. 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 by Kirill Surgical History reimplantation of ureters, rigid cystosc opy age 7 Hospitalization History none Goals Section No Information Health Concerns No Information MEDICAL EQUIPMENT No Information MENTAL STATUS No Information FUNCTIONAL STATUS No Information ASSESSMENTS Encounter Date Diagnosis Assessment Notes Treatment Notes Treatm ent Clinical Notes Jul, AK (actinic keratosis) (ICD-10 - L57.0) 05/18/21 stable FBSE 05/18/21 4 mm thin AK sp cryo, TFT 12 sec; R mid lat forearm c LK focal severe atypia, R mid lat forearm AK c mild atypia both sp SB-ergo, 07/22/21 20D 5% 5FU for 3D DP 03/24/20 B extensor forearms each c 2 3 mm thin AKs; therefore, 5% FU x 21D; 04/21/20 into disintegration phase; therefore, stopped 02/16/18 R proximal thigh sp 2 thin 3/4 mm AKs sp c/c, in 10D will use 5% FU for 14D Jul, Hypertension (ICD-10 - I10) Good control on HCTZ 12.5 qAM/irbe 150 qhs 07/18/21 15/1.0, 4.0 06/2016 ramipril 10 qhs changed to Avapro 150 qhs 2 LD 10/2012 EKG NSR 69 bpm, LAD, inferior repolarization abnormalities, PRWP Jul, Nummular eczema (ICD-10 - L30.0) Continue Currelle BID entire body 03/2018 started LH BID x 7D c flares +/- QD for maintenance Jul, Hx of colonic polyp (ICD-10 - Z86.010) repeat colon 08/2020-Dr. Kincaid Jul, IFG (impaired fasting glucose) (ICD-10 - R73.01) no FH DM 07/18/21 (92, 12) 02/06/21 5.2 09/05/20 5.1 (78, 9) 03/23/20 5.8 (77, 6) 05/2019 5.6 10/2018 5.5 05/2018 5.2 C ELDA-IR 2 (94, 4) 06/2017 A1C 5.6 07/18/21 97 09/05/20 56 05/2019 24 05/2018 63 10/2017 51 06/2017 NEVA/creatinine 161 16 Jul, 2021 Primary osteoarthritis of left hand (ICD-10 - M1 9.042) mainly B basal joint R hand dominant 06/2017 to start home PT (clothes pin exercises) which worked well for R basal joint when did formal PT in 2015 Contingency: xray, hand PT Jul, Colon cancer screening (ICD-10 - Z12.11) colon as per colonic polyp Jul, Mixed hyperlipidemia (ICD-10 - E78.2) Continue dietary therapy 02/06/21 113/96/48 03/23/20 132/78/74 10/2018 132/82/72, <0.3 06/2017 lipids 124/84/86 02/06/21 1.9, 1.1 10/2018 TSH/FT4 1.8/1.1 Jul, Recurrent UTI (ICD-10 - N39.0) No recurrent symptoms 06/2016 UCX E coli 20K rxed c cipro 5D for 3D h/o classic symptoms-advised to c/b if sx not resolved Jul, Lichenoid dermatitis (ICD-10 - L28.0) No recurrent lesions 06/2016 L breast 11 o'clock 11 mm plaque present x 1Y 5 mm PB c/w LD c moderate atypia-LDE (lichenoid drug eruption) vs lichenoid keratosis; therefore, ACEI to ARB as per hypertension Jul, Cystic kidney disease (ICD-10 - Q61.9) baseline cr ~1.0 03/23/20 14.5, 89 05/2019 14.6, 90 01/2017 hgb stable at 14.8, 88 06/2017 B12 507 02/2020 stable US/cytology as per Aly (took care of brother who had RCC) 01/2016 normal cystoscopy-Aly 12/2015 [place] US c ? bladder mass; therefore, referred to Dr. Lu for repeat cystoscopy 12/2013, 12/2014 stable 10/2012 B cysts stable-R < 1cm; L dominant cyst lobulated and septated, slightly increased at 4.0/3.8/3.6 cm c/w 08/2007Jul, Borderline osteopenia (ICD-10 - M85.80) recheck BMD 05/2023 -1.1/-1.0/-1.3 c 2/2/-6% change cw 12/2015; therefore, CCR 12/2015 baseline BMD -0.3/0.2/-0.8 Jul, Asthma, mild persistent (ICD-10 - J45.30) Stable on rare Xopenex MDI improved c home air filtration system symptoms improved sx since loss of dog ideal PF 460 L/min (calculated 01/2015) Contingency: change to ARB 06/2016 stopped Symbicort 80 1 QD given no ADAMS c PF at baseline ~high 300s 09/2015 dropped to Symbicort 80 1 BID given qhs palpitations on 2 BID 05/2015 PF 400-420 s decrease at all exercise nor environmental cues 01/2015 baseline PF 380-420, decreasing to 160 c cleaning (~qM), but little change p exercise, Symbicort 80 2 pffs BID (used prior c success in 2007) and continue Xopenex prn 11/2014 started Xopenex MDI 2 pffs 30 minutes prior to environmental exposure (ani cleaning and cold exposure; rarely exercise), and check PFM with recheck in 6-8W Jul, Breast cancer screening (ICD-10 - Z12.39) 06/2020 B C1 mammogram Jul, Overweight (ICD-10 - E66.3) Encouraged weight loss Jul, Scalp psoriasis (ICD-10 - L40.9) ? h/o inverse in perineal region, advised if flare to c/b to see 01/2015 resolved within 1W, therefore wean to qohs, if stable p 6W, decrease to 2x qW 11/2014 started clobetasol foam qhs for nape of neck and external pinna, stop itching and Neutrogena 4% Neutar qhs 3x qW Jul, Vitamin D deficiency (ICD-10 - E55.9) 07/18/21 35, 9.3 41 09/05/20 65, 9, 50 05/2019 60, 9.4, 38 05/2018 31, 9.1, 40 01/2017 34, 8.8, 36 07/2016 vitamin D 36, 9.3, PTH 42 on D3 5K Jul, Family history of renal cancer (ICD-10 - Z80.51) treatment as per renal cysts Jul, Primary osteoarthritis, right hand (ICD-10 - M19 .041) as per L hand OA Jul, Venous insufficiency of both lower extremities ( ICD-10 - I87.2) mild BLE disease 06/2017 advised BLE compression Jul, Cervical cancer screening (ICD-10 - Z12.4) 05/2019 NILM-[employer] PLAN OF TREATMENT Medication Medication Name Sig Start Date Stop Date Irbesartan 150 MG 1 tablet Orally at bedtime for 90 day(s) Hydrochlorothiazide 12.5 MG 1 tablet Orally Once a day for 90 da y(s) Peak Flow Meter _ as directed _ qd Clobetasol Propionate 0.05 % 1 application to affected area Externally Twice a day x 5 days mamxium to psoriasis plaque for 30 day(s) Xopenex HFA 45 MCG/ACT 2 puffs as needed Inhalation every 8 hrs prn wheeze for 90 day(s) Aspirin 325 MG 1 tablet Orally Once a day Vitamin D 5000 1 tab Orally Once a day for 90 Tums Ultra 1000 1000 MG 1 tablet Orally once daily Ammonium Lactate 12 % 1 application to affected area Externally Twice a day Treatment Notes Assessment Notes Clinical Notes Breast cancer screening 06/2020 B C1 mamm ogram AK (actinic keratosis) 05/18/21 stable FB SE05/18/21 4 mm thin AK sp cryo, TFT 12 sec; R mid lat forearm c LK focal severe atypia, R mid lat forearm AK c mild atypia both sp SB-ergo, 07/22/21 20D 5% 5FU for 3D DP03/24/20 B extensor forearms each c 2 3 mm thin AKs; therefore, 5% FU x 21D; 04/21/20 into disintegration phase; therefore, stopped02/16/18 R proximal thigh sp 2 thin 3/4 mm AKs sp c/c, in 10D will use 5% FU for 14D Asthma, mild persistent Stable on rare X openex MDIimproved c home air filtration systemsymptoms improved sx since loss of dogideal PF 460 L/min (calculated 01/2015)Contingency: change to ARB06/2016 stopped Symbicort 80 1 QD g iven no ADAMS c PF at baseline ~high 300s111/2014 dropped to Symbicort 80 1 BID given qhs palpitations on 2 BID05/2015 PF 400-420 s decrease at all exercise nor environmental cues01/2015 baseline PF 380-420, decreasing to 160 c cleaning (~qM), but little change p exercise, Symbicort 80 2 pffs BID (used prior c success in 2007) and continue Xopenex prn1 started Xopenex MDI 2 pffs 30 minutes prior to environmental exposure (ani cleaning and cold exposure; rarely exercise), and check PFM with recheck in 6-8W Hypertension Good control on HCTZ 12.5 qAM/irbe 150 qhs07/18/21 15/1.0, 4.06/2016 ramipril 10 qhs changed to Avapro 150 qhs 2 LD10/2012 EKG NSR 69 bpm, LAD, inferior repolarization abnormalities, PRWP Scalp psoriasis ? h/o inverse in per ineal region, advised if flare to c/b to see01/2015 resolved within 1W, therefore wean to qohs, if stable p 6W, decrease to 2x qW11/2014 started clobetasol foam qhs for nape of neck and external pinna, stop itching and Neutrogena 4% Neutar qhs 3x qW Nummular eczema Continue Currelle BI D entire body03/2018 started LH BID x 7D c flares +/- QD for maintenance Overweight Encouraged weight lo ss Hx of colonic polyp repeat colon 08/2020 -Dr. Kincaid Family history of renal cancer treatment as per renal cysts IFG (impaired fasting glucose) no FH DM (92, 12)02/06/21 5.210/ 5.1 (78, 9)03/23/20 5.8 (77, 6)05/2019 5.612/2017 5. 5.2 C ELDA-IR 2 (94, 4)06/2017 A1C 5.69 567 247 6312 518 NEVA/c reatinine 161 Vitamin D deficiency 07/18/21 35, 9.3 411 65, 9, 507/2018 60, 9.4, 387/2017 31, 9.1, 403/2017 34, 8.8, 369/2016 vitamin D 36, 9.3, PTH 42 on D3 5K Primary osteoarthritis of left hand main ly B basal jointR hand dominant06/2017 to start home PT (clothes pin exercises) which worked well for R basal joint when did formal PT in 2016Contingency: xray, hand PT Venous insufficiency of both lower extremities mild BLE disease06/2017 advised BLE compression Colon cancer screening colon as per colo mike polyp Primary osteoarthritis, right hand as pe r L hand OA Cervical cancer screening 05/2019 NILM-[employer] [employer] Borderline osteopenia recheck BMD 05/2023 -1.1/-1.0/-1.3 c 2//-6% change cw 12/2015; therefore, baseline BMD -0.3/0.2/-0.8 Cystic kidney disease baseline cr ~1./ 14.5, 897/2018 14.6, 903/2016 hgb stable at 14.8, 888/2016 B12 5074/2020 stable US/cytology as per Aly (took care of brother who had RCC)01/2016 normal cystoscopy-Aly12/2015 [place] US c ? bladder mass; therefore, referred to Dr. Lu for repeat cystoscopy12/2013, 12/2014 /2012 B cysts stable-R < 1cm; L dominant cyst lobulated and septated, slightly increased at 4.0/3.8/3.6 cm c/w 08/2007 Mixed hyperlipidemia Continue dietary th erapy02/06/21 113/96/485/ 132//2017 132/82/72, <0. lipids 124/84/864/01/24 1.9, 1.112/2017 TSH/FT4 1.8/1.1 Recurrent UTI No recurrent symptom UCX E coli 20K rxed c cipro 5D for 3D h/o classic symptoms-advised to c/b if sx not resolved Lichenoid dermatitis No recurrent lesion L breast 11 o'clock 11 mm plaque present x 1Y 5 mm PB c/w LD c moderate atypia-LDE (lichenoid drug eruption) vs lichenoid keratosis; therefore, ACEI to ARB as per hypertension Treatment Notes Test Name Order Date [facility] Attila Screening Bilateral (Ultrasound if Indicated ) (3D Mammo) 2021-07-22 Coronavirus 2019 NOSE (Send Out) COVID 2021-07-22 Future Test Test Name Order Date Comprehensive Metabolic Profile (CMP) 20211121 CBC with Differential 20211121 NT-PRO BNP 20211121 HEMOGLOBIN A1c 20211121 LIPID PANEL (CARDIAC RISK) 20211121 C REACTIVE PROTEIN QUANTITATIV (At [facility]) 20211121 FREE T4 & TSH PANEL 20211121 Next Appt Details 5M, BW 1W prior Reason: Provider Name:Nazario Roy, 2021-12-24 0 1:00:00 PM, [address], , [place], [address], Insurance Providers Payer Name Payer Address Payer Phone Insured Name Patient Relati onship to Insured Coverage Start Date Coverage End Date BCBS [place] P[place] [phone] [facility] [place] [address] JALEN HINTON self
--- OUTSIDE RECORDS SUMMARY | 2021-08-23 09:05 | CCD | Continuity of Care Document ---
Author Author [facility] Organization Unknown Address [address], [address] [place] [address] Phone [phone] Care Team Providers Care Medical Terminologist Name Role Phone Nazario Roy M.D. AUTM [phone] Problems Active Problems Provider Date Essential hypertension [...] lb BMI (Body Mass Index) 30.1 kg/m2 [place] Body Weight 125 lb Weight 82.102 kg BSA (Body Surface Area) 1.90 m2 06/21/2017 9:51am BP Systolic 118 mmHg BP Diastolic 64 mmHg Height 65 inches 5'5" Weight 173.00 lb BMI (Body Mass Index) 28.8 kg/m2 [place] Body Weight 125 lb Weight 78.473 kg [...]
--- OUTSIDE RECORDS SUMMARY | 2021-08-23 09:05 | CCD | Continuity of Care Document ---
Author Author [facility] Organization Unknown Address [address], [address] [place] [address] Phone [phone] Care Team Providers Care Statistics Manager Name Role Phone Nazario Roy M.D. AUTM [phone] Problems Active Problems Provider Date Essential hypertension [...] lb BMI (Body Mass Index) 30.1 kg/m2 [place] Body Weight 125 lb Weight 82.102 kg BSA (Body Surface Area) 1.90 m2 06/21/2017 9:51am BP Systolic 118 mmHg BP Diastolic 64 mmHg Height 65 inches 5'5" Weight 173.00 lb BMI (Body Mass Index) 28.8 kg/m2 [place] Body Weight 125 lb Weight 78.473 kg [...]
--- OUTSIDE RECORDS SUMMARY | 2021-08-23 09:06 | CCD ---
Author Author [facility] Organization [facility] Address Unknown Phone Unavailable Care Team Providers Care Janitorial Maintenance Worker Name Role Phone Nazario Roy Unavailable PROBLEMS Type Condition ICD9-CM Code [id number] Code Onset Dates Condition S tatus W/U Status Risk SNOMED Code Notes Problem Mixed hyperlipidemia E78.2 Active confirmed 555560710 Problem Hypertension I10 Active confirmed 5146417 3 Problem Overweight E66.3 Active confirmed 018075985 Problem Breast cancer screening Z12.39 Active confirmed 519766247 Problem Borderline osteopenia M85.80 Active confirmed 869198609 Problem Vitamin D deficiency E55.9 Active confirmed 33918770 Problem 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 Active confirmed 2389 46798 Problem AK (actinic keratosis) L57.0 Active confirmed 306527070 Problem Recurrent UTI N39.0 Active confirmed 410440 001 Problem Primary osteoarthritis, right hand M19.041 Activ e confirmed 37442928 Problem Colon cancer screening Z12.11 Active confirmed 641939990 Problem Nummular eczema L30.0 Active confirmed 8141 8003 Problem 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 Active confirmed 88259773 Problem Cystic kidney disease Q61.9 Active confirmed 994202319 Problem Cervical cancer screening Z12.4 Active confirmed 077233363 Problem Family history of renal cancer Z80.51 Active confir med 242134351 Problem Asthma, mild persistent J45.30 Active confirmed 685910761 Problem Primary osteoarthritis of left hand M19.042 Acti ve confirmed 98381317 Problem Venous insufficiency of both lower extremities I87 .2 Active confirmed 681299318 Problem IFG (impaired fasting glucose) R73.01 Active confir med 026983018 Problem Hx of colonic polyp Z86.010 Active confirmed 479202342 ALLERGIES Allergen (clinical drug ingredient) Drug/Non Drug Allergy do cumented on EMR Reaction Allergy Type Onset Date Status Sulfa (for allergy use only) Lips and facial swelling Drug Allergy Active lidocaine Lidocaine([facility] Code:[address]-93) welts and itching Drug A llergy Active ENCOUNTERS from 1960 to 2021-05-26 Encounter Location Date Provider Diagnosis [facility] [address] [phone] [place] [address] May, Nazario Roy Sutured skin wound T14.8XXA IMMUNIZATIONS Vaccine Route Administration Date Status Influenza [...] Unknown Language: Question Answer Notes Languages spoken: Congolese Restorationist: Question Answer Notes Restorationist 13 Evangelical Sexual Hx: Question Answer Notes Had sex [...] REASON FOR REFERRAL No Information VITAL SIGNS No information MEDICATIONS Medication SIG (Take, Route, Frequency, Duration) Notes Start Da te End Date Status Hydrochlorothiazide 12.5 MG 1 tablet Orally Once a day for 90 day(s) Active Vitamin D 5000 1 tab Orally Once a day for 90 Active Ammonium Lactate 12 % 1 application to affected area Externally Twi ce a day Active Tums Ultra 1000 1000 MG 1 tablet Orally once daily Active Aspirin 325 MG 1 tablet Orally Once a day Active Xopenex HFA 45 MCG/ACT 2 puffs as needed Inhalation every 8 hrs prn wheeze for 90 day(s) Active Irbesartan 150 MG 1 tablet Orally at bedtime for 90 day(s) Active Peak Flow Meter _ as directed _ qd A ctive Clobetasol Propionate 0.05 % 1 application to affected area Externally Twice a day x 5 days mamxium to psoriasis plaque for 30 day(s) Active PROCEDURES from 1960 to 2021-05-26 Procedure Date Ordered Result Body Site Suture Removal 2021-05-26 N/A RESULTS No Results REASON FOR VISIT first AM or afternoon apt-5M, BW 1W prior MEDICAL (GENERAL) HISTORY Type Description Date Medical [...] Notes Treatment Notes Treatm ent Clinical Notes May, Sutured skin wound (ICD-10 - T14.8XXA) PLAN OF TREATMENT Medication Medication Name Sig Start Date Stop Date Hydrochlorothiazide 12.5 MG 1 tablet Orally Once a day for 90 da y(s) Irbesartan 150 MG 1 tablet Orally at bedtime for 90 day(s) Peak Flow Meter _ as directed _ qd Xopenex HFA 45 MCG/ACT 2 puffs as needed Inhalation every 8 hrs prn wheeze for 90 day(s) Vitamin D 5000 1 tab Orally Once a day for 90 Ammonium Lactate 12 % 1 application to affected area Externally Twice a day Tums Ultra 1000 1000 MG 1 tablet Orally once daily Aspirin 325 MG 1 tablet Orally Once a day Clobetasol Propionate 0.05 % 1 application to affected area Externally Twice a day x 5 days mamxium to psoriasis plaque for 30 day(s) Next Appt Details Provider Name:Nazario Roy, 2021-07-22 0 1:00:00 PM, [address] [place] [address], , [place], [address], Insurance Providers Payer Name Payer Address Payer Phone Insured Name Patient Relati onship to Insured Coverage Start Date Coverage End Date BCBS JASON URRUTIA O [id number] [place] [address] JALEN HINTON self
--- OUTSIDE RECORDS SUMMARY | 2021-08-23 09:06 | CCD ---
Author Author [facility] Organization [facility] Address Unknown Phone Unavailable Care Team Providers Care Preparatory Technician Name Role Phone Martell, Jihan GIN OPERATOR Unavailable Unavailable Martell, Jihan GIN OPERATOR Unavailable Unavailable Martell, Jihan GIN OPERATOR Unavailable Unavailable Martell, Jihan GIN OPERATOR Unavailable Unavailable Martell, Jihan GIN OPERATOR Unavailable Unavailable Martlel, Jihan GIN OPERATOR Unavailable Unavailable Martell, Jihan GIN OPERATOR Unavailable Unavailable Martell, Jihan GIN OPERATOR Unavailable Unavailable Martell, Jihan GIN OPERATOR Unavailable Unavailable Martell, Jihan GIN OPERATOR Unavailable Unavailable Martell, Jihan GIN OPERATOR Unavailable Unavailable Martell, Jihan GIN OPERATOR Unavailable Unavailable Martell, Jihan GIN OPERATOR Unavailable Unavailable Martell, Jihan GIN OPERATOR Unavailable Unavailable Martell, Jihan GIN OPERATOR Unavailable Unavailable Martell, Jihan GIN OPERATOR Unavailable Unavailable Martell, Jihan GIN OPERATOR Unavailable Unavailable Martell, Jihan GIN OPERATOR Unavailable Unavailable Martell, Jihan GIN OPERATOR Unavailable Unavailable Martell, Jihan GIN OPERATOR Unavailable Unavailable Martell, Jihan GIN OPERATOR Unavailable Unavailable Martell, Jihan GIN OPERATOR Unavailable Unavailable Alda MASON MD Unavailable Unavailable Alda MASON MD Unavailable Unavailable Alda MASON MD Unavailable Unavailable Alda MASON MD Unavailable Unavailable Alda MASON MD Unavailable Unavailable Alda MASON MD Unavailable Unavailable Alda MASON MD Unavailable Unavailable Alda MASON MD Unavailable Unavailable Alda MASON MD Unavailable Unavailable Alda MASON MD Unavailable Unavailable ALBALA, Alda ORO MD Unavailable Unavailable ALBALA, Alda ORO MD Unavailable Unavailable ALBALA, Alda ORO MD Unavailable Unavailable ALBALA, Alda ORO MD Unavailable Unavailable ALBALA, Alda ORO MD Unavailable Unavailable ALBALA, Alda ORO MD Unavailable Unavailable ALBALA, Alda ORO MD Unavailable Unavailable ALBALA, Alda ORO MD Unavailable Unavailable ALBALA, Alda ORO MD Unavailable Unavailable ALBALA, Alda ORO MD Unavailable Unavailable ALBALA, Alda ORO MD Unavailable Unavailable ALBALA, Alda ORO MD Unavailable Unavailable ALBALA, Alda ORO MD Unavailable Unavailable ALBALA, Alda ORO MD Unavailable Unavailable ALBALA, Alda ORO MD Unavailable Unavailable ALBALA, Alda ORO MD Unavailable Unavailable ALBALA, Alda ORO MD Unavailable Unavailable ALBALA, Alda ORO MD Unavailable Unavailable ALBALA, Alda ORO MD Unavailable Unavailable ALBALA, Alda ORO MD Unavailable Unavailable ALBALA, Alda ORO MD Unavailable Unavailable ALBALA, Alda ORO MD Unavailable Unavailable ALBALA, Alda ORO MD Unavailable Unavailable ALBALA, Alda ORO MD Unavailable Unavailable ALBALA, Alda ORO MD Unavailable Unavailable ALBALA, Alda ORO MD Unavailable Unavailable ALBALA, Alda ORO MD Unavailable Unavailable ALBALA, Alda ORO MD Unavailable Unavailable ALBALA, Alda ORO MD Unavailable Unavailable ALBALA, Alda ORO MD Unavailable Unavailable ALBALA, Alda ORO MD Unavailable Unavailable ALBALA, Alda ORO MD Unavailable Unavailable ALBALA, Alda ORO MD Unavailable Unavailable ALBALA, Alda ORO MD Unavailable Unavailable ALBALA, Alda ORO MD Unavailable Unavailable ALBALA, Alda ORO MD Unavailable Unavailable ALBALA, Alda ORO MD Unavailable Unavailable ALBALA, Alda ORO MD Unavailable Unavailable ALBALA, Alda ORO MD Unavailable Unavailable ALBALA, Alda ORO MD Unavailable Unavailable ALBALA, Alda ORO MD Unavailable Unavailable ALBALA, Alda ORO MD Unavailable Unavailable ALBALA, Alda ORO MD Unavailable Unavailable ALBALA, Alda ORO MD Unavailable Unavailable ALBALA, Alda ORO MD Unavailable Unavailable ALBALA, Alda ORO MD Unavailable Unavailable ALBALA, Alda ORO MD Unavailable Unavailable ALBALA, Alda ORO MD Unavailable Unavailable ALBALA, Alda ORO MD Unavailable Unavailable ALBALA, Alda ORO MD Unavailable Unavailable ALBALA, Alda ORO MD Unavailable Unavailable ALBALA, Alda ORO MD Unavailable Unavailable ALBALA, Alda ORO MD Unavailable Unavailable ALBALA, Alda ORO MD Unavailable Unavailable ALBALA, Alda ORO MD Unavailable Unavailable ALBALA, Alda ORO MD Unavailable Unavailable ALBALA, Alda ORO MD Unavailable Unavailable ALBALA, Alda ORO MD Unavailable Unavailable ALBALA, Alda ORO MD Unavailable Unavailable ALBALA, Alda ORO MD Unavailable Unavailable ALBALA, Alda ORO MD Unavailable Unavailable ALBALA, Alda ORO MD Unavailable Unavailable ALBALA, Alda ORO MD Unavailable Unavailable ALBALA, Alda ORO MD Unavailable Unavailable ALBALA, Alda ORO MD Unavailable Unavailable ALBALA, Alda ORO MD Unavailable Unavailable ALBALA, Alda ORO MD Unavailable Unavailable ALBALA, Alda ORO MD Unavailable Unavailable ALBALA, Alda ORO MD Unavailable Unavailable ALBALA, Alda ORO MD Unavailable Unavailable ALBALA, Alda ORO MD Unavailable Unavailable ALBALA, Alda ORO MD Unavailable Unavailable ALBALA, Alda ORO MD Unavailable Unavailable ALBALA, Alda ORO MD Unavailable Unavailable ALBALA, Alda ORO MD Unavailable Unavailable ALBALA, Alda ORO MD Unavailable Unavailable ALBALA, Alda ORO MD Unavailable Unavailable ALBALA, Alda ORO MD Unavailable Unavailable ALBALA, Alda ORO MD Unavailable Unavailable ALBALA, Alda ORO MD Unavailable Unavailable ALBALA, Alda ORO MD Unavailable Unavailable ALBALA, Alda ORO MD Unavailable Unavailable ALBALA, Alda ORO MD Unavailable Unavailable Kiran, L Sonya [facility] Unavailable Unavailable [place], M Roxana PEDIATRIC ONCOLOGIST Unavailable Unavailable [place], M Roxana PEDIATRIC ONCOLOGIST Unavailable Unavailable [place], M Roxana PEDIATRIC ONCOLOGIST Unavailable Unavailable [place], M Roxana PEDIATRIC ONCOLOGIST Unavailable Unavailable [place], M Roxana PEDIATRIC ONCOLOGIST Unavailable Unavailable [place], M Roxana PEDIATRIC ONCOLOGIST Unavailable Unavailable [place], M Roxana PEDIATRIC ONCOLOGIST Unavailable Unavailable [place], M Roxana PEDIATRIC ONCOLOGIST Unavailable Unavailable [place], M Roxana PEDIATRIC ONCOLOGIST Unavailable Unavailable [place], M Roxana PEDIATRIC ONCOLOGIST Unavailable Unavailable [place], M Roxana PEDIATRIC ONCOLOGIST Unavailable Unavailable [place], M Roxana PEDIATRIC ONCOLOGIST Unavailable Unavailable [place], M Roxana PEDIATRIC ONCOLOGIST Unavailable Unavailable [place], M Roxana PEDIATRIC ONCOLOGIST Unavailable Unavailable [place], M Roxana PEDIATRIC ONCOLOGIST Unavailable Unavailable [place], M Roxana PEDIATRIC ONCOLOGIST Unavailable Unavailable [place], M Roxana PEDIATRIC ONCOLOGIST Unavailable Unavailable [place], M Roxana PEDIATRIC ONCOLOGIST Unavailable Unavailable [place], M Roxana PEDIATRIC ONCOLOGIST Unavailable Unavailable [place], M Roxana PEDIATRIC ONCOLOGIST Unavailable Unavailable [place], M Roxana PEDIATRIC ONCOLOGIST Unavailable Unavailable [place], M Roxana PEDIATRIC ONCOLOGIST Unavailable Unavailable [place], M Roxana PEDIATRIC ONCOLOGIST Unavailable Unavailable [place], M Roxana PEDIATRIC ONCOLOGIST Unavailable Unavailable [place], M Roxana PEDIATRIC ONCOLOGIST Unavailable Unavailable [place], M Roxana PEDIATRIC ONCOLOGIST Unavailable Unavailable [place], M Roxana PEDIATRIC ONCOLOGIST Unavailable Unavailable [place], M Roxana PEDIATRIC ONCOLOGIST Unavailable Unavailable [place], M Roxana PEDIATRIC ONCOLOGIST Unavailable Unavailable [place], M Roxana PEDIATRIC ONCOLOGIST Unavailable Unavailable [place], M Roxana PEDIATRIC ONCOLOGIST Unavailable Unavailable [place], M Roxana PEDIATRIC ONCOLOGIST Unavailable Unavailable [place], M Roxana PEDIATRIC ONCOLOGIST Unavailable Unavailable [place], M Roxana PEDIATRIC ONCOLOGIST Unavailable Unavailable [place], M Roxana PEDIATRIC ONCOLOGIST Unavailable Unavailable [place], M Roxana PEDIATRIC ONCOLOGIST Unavailable Unavailable [place], M Roxana PEDIATRIC ONCOLOGIST Unavailable Unavailable [place], M Roxana PEDIATRIC ONCOLOGIST Unavailable Unavailable [place], M Roxana PEDIATRIC ONCOLOGIST Unavailable Unavailable Jesus, A Alicia DDS Unavailable Unavailable Jesus, A Alicia DDS Unavailable Unavailable Jesus, A Alicia DDS Unavailable Unavailable Jesus, A Alicia DDS Unavailable Unavailable Walker LAURENCEH, Leatha Unavailable Re-disclosure Warning The records that you are about to access may contain information from federally-assisted alcohol or drug abuse programs. If such information is present, then the following federally mandated warning applies: This information has been disclosed to you from records protected by federal confidentiality rules (42 CFR part 2). The federal rules prohibit you from making any further disclosure of this information unless further disclosure is expressly permitted by the written consent of the person to whom it pertains or as otherwise permitted by 42 CFR part 2. A general authorization for the release of medical or other information is NOT sufficient for this purpose. The Federal rules restrict any use of the information to criminally investigate or prosecute any alcohol or drug abuse patient.The records that you are about to access may contain highly sensitive health information, the redisclosure of which is protected by Article 27-F of the [facility] Public Health law. If you continue you may have access to information: Regarding HIV / AIDS; Provided by facilities licensed or operated by the [facility] Office of Mental Health; or Provided by the [facility] Office for People With Developmental Disabilities. If such information is present, then the following [facility] mandated warning applies: This information has been disclosed to you from confidential records which are protected by state law. State law prohibits you from making any further disclosure of this information without the specific written consent of the person to whom it pertains, or as otherwise permitted by law. Any unauthorized further disclosure in violation of state law may result in a fine or fci sentence or both. A general authorization for the release of medical or other information is NOT sufficient authorization for further disc losure. Advance Directives Directive Description Solar Installation Manager Healthcare Sales Representative Status Observation Descr iption Data Source(s) Ebola Screening Performed completed Ebol a Screening Performed ALONDRA ([facility]) Note: Within the last month, have you tr aveled outside of the [place]? -NO Family History Family Member Name Family Member Gender Family Member Status Date o f Status Description Data Source(s) Unknown Unknown Problem MEDENT ([facility], ) grand father Unknown Female Problem 01/01/2016 12:00:00 AM EST MEDENT ([facility] [place]) Encounters Encounter Providers Location Date Indications Data Source(s ) [place] [address] [facility] [address] 07/22/2021 12:00:00 AM EDT eCW1 ([facility]) [place] [address] [facility] [place] [address] 05/26/2021 12:00:00 AM EDT eCW1 ([facility]) Unknown [address] [facility] [place] [address] 05/20/2021 12:00:00 AM EDT eCW1 ([facility]) Unknown [address] [facility] [place] [address] 05/20/2021 12:00:00 AM EDT eCW1 ([facility]) [place]patient [address] [facility] [place] [address] 05/18/2021 12:00:00 AM EDT eCW1 ([facility]) Outpatient Attender: SHORTY MASON MD [facility] 03/02/2021 02:40:00 PM EDT [facility] [place] Unknown<td ID="encounterTypeDescriptionI D0">H Adult Prophy</td><td>Sonya Beck [facility]</td><td>[facility]</td><td>02/19/2021</td><td>4:23PM</td><td>4:56PM</td><td></td> Attender: Sonya Beck [facility] 02/19/2021 04:23:00 PM EDT - 02/19/2021 04:56:00 PM EDT ALONDRA ([facility]) Outpatient [address] [facility] [address] 02/11/2021 12:00:00 AM EDT eCW1 ([facility]) Unknown [address] [facility] [address] 02/11/2021 12:00:00 AM EDT eCW1 ([facility]) Outpatient<td ID="encounterTypeDescripti onID0">COVID 19 IMM</td><td>Jihan LUONG</td><td>[facility]</td><td>12/16/2020</td><td>12:58PM</td><td>1:16PM</td><td></td> Attender: Jihan Martell NP [facility] 12/16/2020 12:58:00 PM ES T - 12/16/2020 01:16:00 PM EST ALONDRA ([facility]) <td ID="encounterTypeDescriptionID1">COV ID 19 IMM</td><td>Roxana LUONG</td><td>[facility]</td><td>11/18/2020</td><td>1:05PM</td><td>1:24PM</td><td></td>Outpatient Attender: Roxana LUONG [facility] 11/18/2020 01:05:00 PM EST - 11/18/2020 01:24:14 PM EST ALONDRA ([facility]) Outpatient [address] [facility] [address] 09/10/2020 12:00:00 AM EST eCW1 ([facility]) Unknown<td ID="encounterTypeDescriptionI D2">D Dental Office Visit - 30</td><td>Alicia Lee DDS</td><td>[facility]</td><td>08/06/2020</td><td>4:00PM</td><td>4:35PM</td><td></td> Attender: Alicia Aul [facility] 08/06/2020 04:00:00 PM EDT - 08/06/2020 04:35:00 PM EDT [facility]DRA ([facility] Unknown [address] [facility] [address] 07/28/2020 12:00:00 AM EDT eC ([facility]) Outpatient<td ID="encounterTypeDescripti onID3">Hygeine 45min</td><td>Leatha Stanton [facility]</td><td>[facility]</td><td>07/10/2020</td><td>7:38AM</td><td>9:15AM</td><td></td> Attender: Leatha Stanton [facility] 07/10/2020 07:38:00 AM EDT - 07/10/2020 09:15:00 AM EDT ALONDRA ([facility]) Immunizations Vaccine Date Status Description Data Source(s) rajinder COVID-12/16/2020 01:01:00 PM EST completed <td ID="Ieovdnkauizry-Xakvmqnpdyq-DE9">Moderna COVID-</td><td ID="ImmunizationDose-2">2</td><td>12/16/2020</td><td ID="Adbuuwmquqyos-WrivbZrsz-BM3">Right Deltoid</td><td></td><td ID="Oumzmuvdudcsx-Mnltdk-XD5">Complete (Administered)</td><td>[facility]</td><td ID="Kcrqoshmegqof-Wzjoo-Mnoj-Comment-ID2"></td> ALONDRA ([facility]) COVID-19 VACCINE a 12/16/2020 12:00:00 AM EST completed [facility] Vaccine Series Complete: YESThis Data wa s Submitted to [facility] Via [employer]. Moderna COVID-19 11/18/2020 01:10:00 PM EST completed <td ID="Vwigsqyfmafrg-Kwaqacoughx-XX8">ID</td><td ID="ImmunizationDose-1">1</td><td>11/18/2020</td><td ID="Ycdfpkpygfwpo-KzvgzLdcl-SH0">Right Deltoid</td><td></td><td ID="Kvgbdkigqarum-Ckidey-TF8">Complete (Administered)</td><td>[facility]</td><td ID="Zpythgwmdosqv-Aozte-Itrd-Comment-ID1"></td> ALONDRA ([facility]) Note: Vaccine given SOHA ESQUIVEL ID- VACCINE 11/18/2020 12:00:00 AM EST completed [facility]SIIS Vaccine Series Complete: NOThis Data was Submitted to [facility] Via [id number]. INFLUENZA VIRUS VACCINE QUADRIVALENT 2019- (6 MOS AN D UP) 07/27/2020 12:00:00 AM EDT completed [facility] Medications Medication Brand Name Start Date Product Form Dose Route Admi nistrative Instructions Pharmacy Instructions Status Indications Reaction Description Data Source(s) Citric Acid 75 MG/ML / Magnesium Oxide 2 1.9 MG/ML / picosulfate sodium 0.0625 MG/ML Oral Solution [Clenpiq] 10 mg-3.5 gram -12 gram/160 mL SOD PICOSULF/MAG OX/CITRIC AC 06/24/2021 12:00:00 AM EDT solution 320 T CASTRO PER DOCTOR'S BOWEL PREP INSTRUCTIONS TAKE PER DOCTOR'S BOWEL PREP INSTRUCTIONS SOLD: 06/28/2021 [facility] Bisacodyl 5 MG Delayed Release Oral Tablet [Dulcolax] Dulcol ax 06/24/2021 12:00:00 AM EDT ORAL active M EDENT ([facility], ) Clenpiq Clenpiq 06/24/2021 12:00:00 AM EDT active MEDENT ([facility], ) 150 mg 03/13/2021 12:00:00 AM EDT tablet 90 TAKE ONE TABLET BY MOUTH AT BEDTIME TAKE ONE TABLET BY MOUTH AT BEDTIME SOLD: 06/22/2021 [facility] Hydrochlorothiazide 12.5 MG Oral Tablet HYDROCHLOROTHIAZIDE 03/13/2021 12:00:00 AM EDT tablet 90 TAKE ONE TABLET BY MOUTH PEPITO RY DAY TAKE ONE TABLET BY MOUTH EVERY DAY SOLD: 06/22/2021 [facility] Hydrochlorothiazide 12.5 MG Oral Tablet HYDROCHLOROTHIAZIDE 03/13/2021 12:00:00 AM EDT tablet 90 TAKE ONE TABLET BY MOUTH PEPITO RY DAY TAKE ONE TABLET BY MOUTH EVERY DAY SOLD: 03/22/2021 [facility] 150 mg 03/13/2021 12:00:00 AM EDT tablet 90 TAKE ONE TABLET BY MOUTH AT BEDTIME TAKE ONE TABLET BY MOUTH AT BEDTIME SOLD: 03/22/2021 [facility] 150 mg 09/11/2020 12:00:00 AM EST tablet 90 TAKE ONE TABLET BY MOUTH AT BEDTIME TAKE ONE TABLET BY MOUTH AT BEDTIME SOLD: 09/16/2020 [facility] Hydrochlorothiazide 12.5 MG Oral Tablet HYDROCHLOROTHIAZIDE 09/11/2020 12:00:00 AM EST tablet 90 TAKE ONE TABLET BY MOUTH PEPITO RY DAY TAKE ONE TABLET BY MOUTH EVERY DAY SOLD: 09/16/2020 [facility] Hydrochlorothiazide 12.5 MG Oral Tablet HYDROCHLOROTHIAZIDE 09/11/2020 12:00:00 AM EST tablet 90 TAKE ONE TABLET BY MOUTH PEPITO RY DAY TAKE ONE TABLET BY MOUTH EVERY DAY SOLD: 12/17/2020 [facility] 150 mg 09/11/2020 12:00:00 AM EST tablet 90 TAKE ONE TABLET BY MOUTH AT BEDTIME TAKE ONE TABLET BY MOUTH AT BEDTIME SOLD: 12/17/2020 [facility] Hydrochlorothiazide 12.5 MG Oral Tablet HYDROCHLOROTHIAZIDE 06/23/2020 12:00:00 AM EDT tablet 90 TAKE ONE TABLET BY MOUTH PEPITO RY DAY TAKE ONE TABLET BY MOUTH EVERY DAY SOLD: 06/24/2020 [facility] 150 mg 06/19/2020 12:00:00 AM EDT tablet 90 TAKE ONE TABLET BY MOUTH EVERY DAY TAKE ONE TABLET BY MOUTH EVERY DAY SOLD: 06/24/2020 [facility] Insurance Providers Payer name Policy type / Coverage type Policy ID Covered constitution party ID Covered constitution party's relationship to zhang Policy Zhang Plan Information [facility] 306/806 [id number] SP [id number] [place] OF [place] 306/806 [id number] SP [id number] [place] OF [place] 306/806 [id number] SP [id number] [place] PPO 302/307 [id number] SP [id number] BCBS of [facility] Group Policy 0 [id number] Self 0 BCBS of [facility] Group Policy 0 [id number] Self 0 BC[place] OF [place] 306/806 [id number] SP [id number] [place] P[place] 302/307 [id number] SP [id number] [place]BS [place] P[place] 302/307 [id number] SP [id number] BCBS of [facility] Other 0 [id number] Self 0 BCBS of [facility] 0 [id number] Self 0 [place] [id number] Self [id number] [place]CELLUS BCBS B [id number] S [id number] [place] [id number] Self [place] BCBS B [id number] S [id number] BCBS [place] PPO 302/307 [id number] SP [id number] [place] [id number] [id number] Self [id number] [place]BS [place] PPO 302/307 [id number] SP [id number] [place] BCBS B [id number] S [id number] BCBS OF [place] 306/806 [id number] SP [id number] BC[place] OF [place] 306/806 [id number] SP [id number] ANSI-Commercial [id number] [facility] Commercial [id number] [id number] Self [id number] ANSI-Commercial [id number] ANSI-Commercial [id number] ANSI-Commercial [id number] ANSI-Commercial [id number] [facility] [place] PPO 302/307 [id number] SP [id number] Excellus [facility] Health Maintenance Organization (HMO) [id number] Self [id number] Problems, Conditions, and Diagnoses Code Display Name Description Problem Type Effective Dates Data Source(s) N20.0 Kidney stone Kidney stone Problem 03/02/2021 12:00:00 A M EDT MEDSHREYA ([facility] [place]) [id number] No Active Problems No Active Problems Problem 12:00:00 AM EDT ALONDRA ([facility]) Surgeries/Procedures Procedure Description Date Indications Data Source(s) Suture Removal 05/26/2021 12:00:00 AM EDT eCW1 ([facility]) US RETROPERITONEAL REAL TIME W/IMAGE LIMITED 1 12:00:00 AM EDT MEDENT ([facility] [place]) US RETROPERITONEAL REAL TIME W/IMAGE LIMITED 12:00:00 AM EDT MEDENT ([facility] [place]) Clinical summary transmitted to referrin g provider electronically with reasonable certainty of receipt or receiving provider electronically through [facility] 02/19/2021 12:00:00 AM EDT - 02/19/2021 12:00:00 AM EDT ALONDRA ([facility]) Transition in care medication list update 02/19/2021 12:00:00 AM EDT - 02/19/2021 12:00:00 AM EDT ALONDRA ([facility]) Oral Hygiene/Nash Inst Oral Hygiene/Nash Inst 02/19/2021 12:00:00 AM EDT ALONDRA ([facility]) Nutritional Counseling Nutritional Counseling 02/19/2021 12:00:00 A M EDT ALONDRA ([facility]) Prophylaxis Adult Prophylaxis Adult 02/19/2021 12:00:00 AM EDT ALONDRA ([facility]) Moderna COVID-19 Vaccine Moderna COVID-19 Vaccine 12/16/2020 12:00: 00 AM EST ALONDRA ([facility]) Moderna COVID19 Vaccine Administration First Dose Mode rna COVID19 Vaccine Administration First Dose 11/18/2020 12:00:00 AM EST GREENWA Y ([facility]) Moderna COVID-19 Vaccine Moderna COVID-19 Vaccine 11/18/2020 12:00: 00 AM EST ALONDRA ([facility]) Oral Cancer Screening Oral Cancer Screening 08/06/2020 12:00:00 AM EDT ALONDRA ([facility]) Periodic Oral Evaluation Periodic Oral Evaluation 08/06/2020 12:00: 00 AM EDT ALONDRA ([facility]) Unspecified Preventive Procedure, by report Unspecifie d Preventive Procedure, by report 08/06/2020 12:00:00 AM EDT ALONDRA ([facility]) Nutritional Counseling Nutritional Counseling 07/10/2020 12:00:00 A M EDT ALONDRA ([facility]) Oral Hygiene/Nash Inst Oral Hygiene/Nash Inst 07/10/2020 12:00:00 AM EDT ALONDRA ([facility]) Bitewing - 4 radiographic images Bitewing - 4 radiographic i mages 07/10/2020 12:00:00 AM EDT ALONDRA ([facility]) Prophylaxis Adult Prophylaxis Adult 07/10/2020 12:00:00 AM EDT ALONDRA ([facility]) Unspecified Preventive Procedure, by report Unspecifie d Preventive Procedure, by report 07/10/2020 12:00:00 AM EDT ALONDRA ([facility]) Results ID Date Data Source [id number] 03/02/2021 02:18:00 PM EDT MEDENT ([facility] [place]) Name Value Range Interpretation Code Description Data Cece rce(s) Supporting Document(s) Protein [Presence] in Urine by Test strip Laboratory test result MEDENT ([facility] [place]) Glucose [Presence] in Urine Laboratory test result MEDENT ([facility] [place]) Ua Leuko Laboratory test result ME DENT ([facility]) Blood [Presence] in Urine by Visual Laboratory test result MEDENT ([facility] [employer] [facility]) Ua Nitrite Laboratory test result ME DENT ([facility]) Ketones [Presence] in Urine by Test strip Laboratory test result MEDENT ([facility] [employer] [facility]) Color of Urine Laboratory test result MEDENT ([facility] [place]) Ua Specific [place] 1.015 1.003-1.030 MEDE NT ([facility] [employer] [facility]) Clarity of Urine Laboratory test result MEDENT ([facility] [employer] [facility]) Urobilinogen [Mass/volume] in Urine by Test strip 0.2 E.U./dL 0.0-1.0 MEDENT ([facility] [employer] [facility]) Bilirubin.total [Presence] in Urine by Test strip Laboratory test res ult MEDENT ([facility] [employer] [facility]) pH of Urine by Test strip 5.0 5.0-7.5 MEDENT ([employer] [facility]) Procedure Social History Code Duration Value Status Description Data Source(s ) Smoking 07/22/2021 12:00:00 AM EDT Never Smoker completed Never S moker eCW1 ([facility]) Smoking 05/20/2021 12:00:00 AM EDT Never Smoker completed Never S moker eCW1 ([facility]) Smoking 05/20/2021 12:00:00 AM EDT Never Smoker completed Never S moker eCW1 ([facility]) Smoking 05/20/2021 12:00:00 AM EDT Never Smoker completed Never S moker eCW1 ([facility]) Smoking 05/20/2021 12:00:00 AM EDT Never Smoker completed Never S moker eCW1 ([facility]) Smoking 03/02/2021 12:00:00 AM EDT Never Smoked Cigarettes com pleted Never Smoked Cigarettes [facility] ([employer] [employer] [facility] [place]) Smoking 02/19/2021 04:25:00 PM EDT Never smoked tobacco (findi ng) completed Never smoked tobacco (finding) ALONDRA ([facility]) Smoking 02/11/2021 12:00:00 AM EDT Never Smoker completed Never S moker eCW1 ([facility]) Smoking 02/11/2021 12:00:00 AM EDT Never Smoker completed Never S moker eCW1 ([facility]) Smoking 09/10/2020 12:00:00 AM EST Never Smoker completed Never S moker eCW1 ([facility]) Vital Signs ID Date Data Source UNK Name Value Range Interpretation Code Description Data Source(s) Body height 65 [in_i] 65 [in_i] eCW1 ([facility]) Body mass index (BMI) [Ratio] 29.28 kg/m2 29.28 kg/m2 eCW1 ([facility]) Heart rate 84 /min 84 /min eCW1 ([facility]) Respiratory rate 20 /min 20 /min eCW1 ([facility]) Body temperature 98.3 [degF] 98.3 [degF] eCW1 ( [facility]) Systolic blood pressure 120 mm[Hg] 120 mm[Hg] e CW1 ([facility]) Body weight 176 [lb_av] 176 [lb_av] eCW1 ([facility]) Body weight 79.83 kg 79.83 kg eCW1 ([facility]) Diastolic blood pressure 78 mm[Hg] 78 mm[Hg] eCW1 ([facility]) Systolic blood pressure 122 mm[Hg] 122 mm[Hg] M EDENT ([facility]) Diastolic blood pressure 82 mm[Hg] 82 mm[Hg] MEDENT ([facility]) Body height 65 [in_i] 65 [in_i] MEDENT ([facility]) 5'5" Body weight 181.00 [lb_av] 181.00 [lb_av] MEDEN T ([facility]) Body mass index (BMI) [Ratio] 30.1 kg/m2 30.1 k g/m2 [facility] [place] body weight 125 [lb_av] 125 [lb_av] MEDEN T ([facility]) Body weight 82.102 kg 82.102 kg [facility] ([facility]) Body surface area Derived from formula 1.90 m2 1.90 m2 [facility] ([facility]) Body weight 179 [lb_av] 179 [lb_av] eCW1 ([facility]) Body height 65 [in_i] 65 [in_i] eCW1 ([facility]) Body mass index (BMI) [Ratio] 29.78 kg/m2 29.78 kg/m2 eCW1 ([facility]) Heart rate 83 /min 83 /min eCW1 ([facility]) Respiratory rate 20 /min 20 /min eCW1 ([facility]) Body temperature 98.5 [degF] 98.5 [degF] eCW1 ( [facility]) Systolic blood pressure 118 mm[Hg] 118 mm[Hg] e CW1 ([facility]) Diastolic blood pressure 80 mm[Hg] 80 mm[Hg] eCW1 ([facility]) Body height 65 [in_i] 65 [in_i] [facility] ([facility] [place] 5'5" Body weight 168.00 [lb_av] 168.00 [lb_av] MEDEN T ([facility] [place]) Body weight 76.205 kg 76.205 kg [facility] ([facility] [place]) Body mass index (BMI) [Ratio] 28.0 kg/m2 28.0 k g/m2 [facility] ([facility] [employer] [facility] [place]) Systolic blood pressure 121 mm[Hg] 121 mm[Hg] M EDENT ([facility] [employer] [facility] [place]) Diastolic blood pressure 82 mm[Hg] 82 mm[Hg] [facility] ([facility] [employer] [facility] [place]) Heart rate 70 /min 70 /min [facility] ([facility] [place] Body weight 176 [lb_av] 176 [lb_av] eCW1 ([facility]) Body height 65 [in_i] 65 [in_i] eCW1 ([facility]) Body mass index (BMI) [Ratio] 29.28 kg/m2 29.28 kg/m2 eCW1 ([facility]) Heart rate 87 /min 87 /min eCW1 ([facility]) Respiratory rate 20 /min 20 /min eCW1 ([facility]) Body temperature 99.1 [degF] 99.1 [degF] eCW1 ( [facility]) Systolic blood pressure 120 mm[Hg] 120 mm[Hg] e CW1 ([facility]) Diastolic blood pressure 78 mm[Hg] 78 mm[Hg] eCW1 ([facility]) Body weight 168.8 [lb_av] 168.8 [lb_av] eCW1 ([facility]) Body height 65 [in_i] 65 [in_i] eCW1 ([facility]) Body mass index (BMI) [Ratio] 28.09 kg/m2 28.09 kg/m2 eCW1 ([facility]) Heart rate 114 /min 114 /min eCW1 ([facility]) Respiratory rate 18 /min 18 /min eCW1 ([facility]) Body temperature 98.4 [degF] 98.4 [degF] eCW1 ( [facility]) Systolic blood pressure 122 mm[Hg] 122 mm[Hg] e CW1 ([facility]) Diastolic blood pressure 82 mm[Hg] 82 mm[Hg] eCW1 ([facility])
--- NOTE | 2021-08-23 11:11 | ROOR ---
Patient Name: Indy Hinton Procedure Date: 08/23/2021 10:39 AM Date of : 1960 Age: 61 Room: [facility] Gender: Female Note Status: Finalized Procedure: Colonoscopy Indications: High risk colon cancer surveillance: Personal history of colonic polyps Providers: Jose Montoya MD Referring MD: Nazario Roy MD Requesting Provider: Medicines: Monitored Anesthesia Care Complications: No immediate complications. Procedure: Pre-Anesthesia Assessment: - Prior to the procedure, a History and Physical was performed, and patient medications and allergies were reviewed. The patient is competent. The risks and benefits of the procedure and the sedation options and risks were discussed with the patient. All questions were answered and informed consent was obtained. Patient identification and proposed procedure were verified by the physician, the nurse and the anesthesiologist in the procedure room. Mental Status Examination: alert and oriented. Airway Examination: normal oropharyngeal airway and neck mobility. Respiratory Examination: clear to auscultation. CV Examination: normal. Prophylactic Antibiotics: The patient does not require prophylactic antibiotics. Prior Anticoagulants: The patient has taken no previous anticoagulant or antiplatelet agents. ASA Grade Assessment: II - A patient with mild systemic disease. After reviewing the risks and benefits, the patient was deemed in satisfactory condition to undergo the procedure. The anesthesia plan was to use monitored anesthesia care (MAC). Immediately prior to administration of medications, the patient was re-assessed for adequacy to receive sedatives. The heart rate, respiratory rate, oxygen saturations, blood pressure, adequacy of pulmonary ventilation, and response to care were monitored throughout the procedure. The physical status of the patient was re-assessed after the procedure. The Colonoscope was introduced through the anus and advanced to the terminal ileum, with identification of the appendiceal orifice and IC valve. The colonoscopy was performed without difficulty. The patient tolerated the procedure well. The quality of the bowel preparation was good. The terminal ileum, ileocecal valve, appendiceal orifice, and rectum were photographed. Scope insertion time was 2 minutes. Scope withdrawal time was 8 minutes. The total duration of the procedure was 10 minutes. Findings: The perianal and digital rectal examinations were normal. The terminal ileum appeared normal. Three sessile polyps were found in the transverse colon and ascending colon. The polyps were 3 to 5 mm in size. These polyps were removed with a cold snare. Resection and retrieval were complete. Verification of patient identification for the specimen was done by the physician and nurse using the patient's name, date and medical record number. Estimated blood loss was minimal. Multiple small and large-mouthed diverticula were found in the sigmoid colon and descending colon. There was no evidence of diverticular bleeding. Non-bleeding external and internal hemorrhoids were found during retroflexion. The hemorrhoids were medium-sized. Impression: - The examined portion of the ileum was normal. - Three 3 to 5 mm polyps in the transverse colon and in the ascending colon, removed with a cold snare. Resected and retrieved. - Moderate diverticulosis in the sigmoid colon and in the descending colon. There was no evidence of diverticular bleeding. - Non-bleeding external and internal hemorrhoids. Recommendation: - Patient has a contact number available for emergencies. The signs and symptoms of potential delayed complications were discussed with the patient. Return to normal activities tomorrow. Written discharge instructions were provided to the patient. - High fiber diet. - Continue present medications. - Use original regular Metamucil one tablespoon PO daily for atleast 7 days and then adjust dose to have one to two soft bowel movements daily. - Await pathology results. - Repeat colonoscopy in 5-10 years for surveillance based on pathology results. - Telephone GI clinic for pathology results in 2 weeks. - Return to primary care physician. - Return to GI clinic if persistent symptoms or new symptoms. Procedure Code(s): --- Professional --- 76358, Colonoscopy, flexible; with removal of tumor(s), polyp(s), or other lesion(s) by snare technique Diagnosis Code(s): --- Professional --- Z86.010, Personal history of colonic polyps K64.8, Other hemorrhoids K63.5, Polyp of colon K57.30, Diverticulosis of large intestine without perforation or abscess without bleeding CPT copyright 2019 [employer]. All rights reserved. The codes documented in this report are preliminary and upon french teacher review may be revised to meet current compliance requirements. Jose Montoya MD Jose Montoya MD 08/23/2021 11:10:22 AM Electronically signed by Jose Montoya MD Number of Addenda: 0 Note Initiated On: 08/23/2021 10:39 AM Estimated Blood Loss: Estimated blood loss was minimal.
[2021-08-23] MEDS ORDERED: LIDOCAINE 2% 100MG/5ML SDV (FOR ANES.) As Ordered ONE (11:12)
[2021-08-23] MEDS ORDERED: propofoL 200 MG/20 ML VIAL As Ordered ONE (11:12)
[2021-08-23 11:20] VITALS: BP 158/97
== END 2021-08-23 11:29 | disposition home or self-care (01) ==
LOC: M OPP 09:02
PROVIDERS: ATTEND Internal Medicine Gastroenterology
DX: Z12.11 Encounter for screening for malignant neoplasm of colon (principal); Z86.010 Personal history of colon polyps; Z83.71 Family history of colonic polyps; K63.5 Polyp of colon; K57.30 Diverticulosis of large intestine without perforation or abscess without bleeding; K64.8 Other hemorrhoids; Z79.82 Long term (current) use of aspirin; Z79.899 Other long term (current) drug therapy; Z88.2 Allergy status to sulfonamides; Z88.8 Allergy status to other drugs, medicaments and biological substances; Z80.1 Family history of malignant neoplasm of trachea, bronchus and lung; Z80.51 Family history of malignant neoplasm of kidney

== ENCOUNTER → 2021-09-16 | Outpatient (CLI) | payer BC ==
[~2021-09-16] MED LIST changes: -NS 1,000 ML IV ONE
--- NOTE | 2021-09-16 08:27 | REPMRS ---
Patient History The patient states she had a clinical breast exam in May 2021. Family history of colorectal cancer at age 50 or over in paternal grandfather. No Hormone Replacement Therapy Tomosynthesis is performed. Volpara breast density is b. Tyrer-zi lifetime risk of breast cancer 6.6%. Patient states no breast complaints today. Patient has signed MRS History Sheet. Digital Woman Screen Mammo: September 16, 2021 - Exam #: [id number] Bilateral CC and MLO view(s) were taken. Technologist: Joann Mejia, Technologist Prior study comparison: June 17, 2020, bilateral digital woman screen mammo performed at [facility]. May 24, 2019, bilateral digital woman screen mammo performed at [facility]. FINDINGS: The breast tissue is heterogeneously dense. This may lower the sensitivity of mammography. There has been no change in the appearance of the mammogram from the prior studies. There is a moderate amount of residual fibroglandular tissue which is fairly symmetric. There is no interval development of dominant mass, areas of architectural distortion, or clustered microcalcification typical of malignancy. Assessment: BI-RADS/ACR category 1 mammogram. Negative Mammogram. Recommendation Routine screening mammogram in 1 year (for women over age 40). This mammogram was interpreted with the aid of an FDA-approved computer-aided dectection system. Electronically Signed By: Alireza Hamilton MD 09/16/21 0827
== END ==
LOC: M WHC 07:05
PROVIDERS: ATTEND Family Medicine
DX: Z12.31 Encounter for screening mammogram for malignant neoplasm of breast (principal)

== ENCOUNTER → 2021-12-24 | Outpatient (CLI) | payer BC ==
[2021-12-24 13:42] LABS: ALBUMIN 3.5 GM/DL (3.2-5.2); ALT/SGPT 26 U/L (12-78); BILIRUBIN,TOTAL 0.5 MG/DL (0.2-1.0); BLOOD UREA NITROGEN 19 MG/DL (7-18); CARBON DIOXIDE LEVEL 29 MEQ/L (21-32); CHLORIDE LEVEL 102 MEQ/L (98-107); CHOLESTEROL LEVEL 230 MG/DL (<200); CHOLESTEROL RISK RATIO 2.555 (<5); CREATININE FOR GFR 0.84 MG/DL (0.55-1.30); FREE T4 1.18 NG/DL (0.76-1.46); GLOMERULAR FILTRATION RATE > 60.0 (>51); GLUCOSE, FASTING 80 MG/DL (70-100); HDL CHOLESTEROL 90 MG/DL (>40); LDL CHOLESTEROL 128 MG/DL (<100); NON-HDL-C 140 MG/DL; NT-PRO BNP 107 PG/ML (<125); POTASSIUM SERUM 4.2 MEQ/L (3.5-5.1); SODIUM LEVEL 139 MEQ/L (136-145); TOTAL PROTEIN 6.8 GM/DL (6.4-8.2); TRIGLYCERIDES LEVEL 61 MG/DL (<150)
[2021-12-24 13:47] LABS: BASO # 0.1 10^3/uL (0.0-0.2); EOS # 0.2 10^3/uL (0.0-0.5); EOS % 3.2 % (0.0-3.0); HEMATOCRIT 42.1 % (36.0-47.0); HEMOGLOBIN 13.7 g/dl (12.0-15.5); LYMPH # 2.2 10^3/uL (1.5-5.0); LYMPH % 32.9 % (24.0-44.0); MEAN CORPUSCULAR HEMOGLOBIN 29.5 pg (27.0-33.0); MEAN CORPUSCULAR HGB CONC 32.5 g/dl (32.0-36.5); MEAN CORPUSCULAR VOLUME 90.5 fl (80.0-96.0); MONO # 0.6 10^3/uL (0.0-0.8); MONO % 8.2 % (2.0-8.0); NEUTROPHILS # 3.7 10^3/uL (1.5-8.5); NEUTROPHILS % 54.4 % (36.0-66.0); PLATELET COUNT, AUTOMATED 303 10^3/uL (150-450); RED BLOOD COUNT 4.65 10^6/uL (4.00-5.40); WHITE BLOOD COUNT 6.8 10^3/uL (4.0-10.0)
[2021-12-24 13:59] LABS: HEMOGLOBIN A1c 5.3 %
== END ==
LOC: M PLALAB 10:08
PROVIDERS: ATTEND Family Medicine
DX: I10 Essential (primary) hypertension (principal); R73.01 Impaired fasting glucose; E78.2 Mixed hyperlipidemia

== ENCOUNTER → 2022-05-19 | Outpatient (REF) | payer BC | LOC: M SFHCPLAZ 13:37 | PROVIDERS: ATTEND Family Medicine | DX: D04.62 Carcinoma in situ of skin of left upper limb, including shoulder (principal) ==

== ENCOUNTER → 2022-05-24 | Outpatient (CLI) | payer BC ==
[2022-05-24 12:54] LABS: BASO # 0.1 10^3/uL (0.0-0.2); BASO % 1.1 % (0.0-1.0); EOS # 0.2 10^3/uL (0.0-0.5); EOS % 3.6 % (0.0-3.0); HEMATOCRIT 39.7 % (36.0-47.0); HEMOGLOBIN 13.3 g/dl (12.0-15.5); LYMPH % 30.8 % (24.0-44.0); MEAN CORPUSCULAR HGB CONC 33.5 g/dl (32.0-36.5); MEAN CORPUSCULAR VOLUME 89.6 fl (80.0-96.0); MONO # 0.5 10^3/uL (0.0-0.8); MONO % 8.2 % (2.0-8.0); NEUTROPHILS # 3.7 10^3/uL (1.5-8.5); PLATELET COUNT, AUTOMATED 310 10^3/uL (150-450); RED BLOOD COUNT 4.43 10^6/uL (4.00-5.40); WHITE BLOOD COUNT 6.6 10^3/uL (4.0-10.0)
[2022-05-24 13:13] LABS: HEMOGLOBIN A1c 5.2 %
[2022-05-24 13:17] LABS: ALBUMIN 3.3 GM/DL (3.2-5.2); ALT/SGPT 20 U/L (12-78); BILIRUBIN,TOTAL 0.4 MG/DL (0.2-1.0); BLOOD UREA NITROGEN 22 MG/DL (7-18); CALCIUM LEVEL 9.4 MG/DL (8.8-10.2); CARBON DIOXIDE LEVEL 28 MEQ/L (21-32); CHLORIDE LEVEL 108 MEQ/L (98-107); CHOLESTEROL LEVEL 237 MG/DL (<200); CHOLESTEROL RISK RATIO 2.604 (<5); CREATININE FOR GFR 0.99 MG/DL (0.55-1.30); GLOMERULAR FILTRATION RATE > 60.0 (>45); GLUCOSE, FASTING 87 MG/DL (70-100); HDL CHOLESTEROL 91 MG/DL (>40); LDL CHOLESTEROL 133 MG/DL (<100); NON-HDL-C 146 MG/DL; NT-PRO BNP 115 PG/ML (<125); SODIUM LEVEL 141 MEQ/L (136-145); TOTAL PROTEIN 6.5 GM/DL (6.4-8.2); TRIGLYCERIDES LEVEL 65 MG/DL (<150)
== END ==
LOC: M ADAMS 08:47
PROVIDERS: ATTEND Family Medicine
DX: I10 Essential (primary) hypertension (principal); R73.01 Impaired fasting glucose; E78.2 Mixed hyperlipidemia

== ENCOUNTER → 2022-10-18 | Outpatient (CLI) | payer BC | LOC: M WHC 09:49 | PROVIDERS: ATTEND Family Medicine | DX: Z12.31 Encounter for screening mammogram for malignant neoplasm of breast (principal) ==

== ENCOUNTER → 2022-10-25 | Outpatient (REF) | payer BC ==
[2022-10-25 14:11] LABS: BASO # 0.1 10^3/uL (0.0-0.2); BASO % 1.1 % (0.0-1.0); EOS # 0.4 10^3/uL (0.0-0.5); EOS % 4.9 % (0.0-3.0); HEMATOCRIT 43.3 % (36.0-47.0); HEMOGLOBIN 13.9 g/dl (12.0-15.5); LYMPH # 2.4 10^3/uL (1.5-5.0); LYMPH % 33.3 % (24.0-44.0); MEAN CORPUSCULAR HEMOGLOBIN 29.5 pg (27.0-33.0); MEAN CORPUSCULAR HGB CONC 32.1 g/dl (32.0-36.5); MEAN CORPUSCULAR VOLUME 91.9 fl (80.0-96.0); MONO # 0.6 10^3/uL (0.0-0.8); MONO % 8.1 % (2.0-8.0); NEUTROPHILS # 3.8 10^3/uL (1.5-8.5); NEUTROPHILS % 52.2 % (36.0-66.0); PLATELET COUNT, AUTOMATED 307 10^3/uL (150-450); RED BLOOD COUNT 4.71 10^6/uL (4.00-5.40); WHITE BLOOD COUNT 7.2 10^3/uL (4.0-10.0)
[2022-10-25 14:37] LABS: FERRITIN 37.8 NG/ML (7.3-270.7)
[2022-10-25 14:38] LABS: TOTAL 25(OH) VITAMIN D 31.8 NG/ML (20.0-100.0)
[2022-10-25 14:39] LABS: ALBUMIN 3.5 G/DL (3.2-5.2); ALKALINE PHOSPHATASE 89 U/L (46-116); ALT/SGPT 16 U/L (7.0-40); AST/SGOT 19 U/L (<34); BILIRUBIN,TOTAL 0.5 MG/DL (0.3-1.2); BLOOD UREA NITROGEN 24 MG/DL (9-23); CALCIUM LEVEL 9.2 MG/DL (8.3-10.6); CARBON DIOXIDE LEVEL 28 MMOL/L (20-31); CHLORIDE LEVEL 102 MMOL/L (98-107); CREATININE FOR GFR 0.93 MG/DL (0.55-1.30); GLOMERULAR FILTRATION RATE > 60.0 (>45); GLUCOSE, FASTING 83 MG/DL (74-106); POTASSIUM SERUM 4.4 MMOL/L (3.5-5.1); PTH INTACT 55.4 PG/ML (18.5-88.0); SODIUM LEVEL 140 MMOL/L (136-145); TOTAL PROTEIN 6.4 G/DL (5.7-8.2)
[2022-10-26 08:09] LABS: APOLIPOPROTEIN B/A-1 RATIO 0.6 ratio (0.0-0.6); INSULIN LEVEL 11.6 uIU/mL (2.6-24.9)
== END ==
LOC: M SFHCDERM 07:59
PROVIDERS: ATTEND Family Medicine
DX: E78.2 Mixed hyperlipidemia (principal); R73.01 Impaired fasting glucose; E55.9 Vitamin D deficiency, unspecified; I10 Essential (primary) hypertension

== ENCOUNTER → 2023-04-12 | Outpatient (REF) | payer BC ==
[2023-04-12 13:29] LABS: BASO # 0.1 10^3/uL (0.0-0.2); BASO % 1.1 % (0.0-1.0); EOS # 0.2 10^3/uL (0.0-0.5); EOS % 3.5 % (0.0-3.0); HEMATOCRIT 43.7 % (36.0-47.0); HEMOGLOBIN 14.6 g/dl (12.0-15.5); LYMPH # 2.2 10^3/uL (1.5-5.0); LYMPH % 34.9 % (24.0-44.0); MEAN CORPUSCULAR HGB CONC 33.4 g/dl (32.0-36.5); MEAN CORPUSCULAR VOLUME 89.7 fl (80.0-96.0); MONO # 0.5 10^3/uL (0.0-0.8); MONO % 7.8 % (2.0-8.0); NEUTROPHILS # 3.3 10^3/uL (1.5-8.5); NEUTROPHILS % 52.4 % (36.0-66.0); PLATELET COUNT, AUTOMATED 306 10^3/uL (150-450); RED BLOOD COUNT 4.87 10^6/uL (4.00-5.40); WHITE BLOOD COUNT 6.4 10^3/uL (4.0-10.0)
[2023-04-12 13:49] LABS: ALBUMIN 3.6 G/DL (3.2-5.2); ALKALINE PHOSPHATASE 93 U/L (46-116); ALT/SGPT 19 U/L (7.0-40); AST/SGOT 13 U/L (<34); BILIRUBIN,TOTAL 0.7 MG/DL (0.3-1.2); BLOOD UREA NITROGEN 20 MG/DL (9-23); CALCIUM LEVEL 9.7 MG/DL (8.3-10.6); CARBON DIOXIDE LEVEL 30 MMOL/L (20-31); CHLORIDE LEVEL 102 MMOL/L (98-107); CHOLESTEROL LEVEL 232 MG/DL (<200); CHOLESTEROL RISK RATIO 2.82 (<5); CREATININE FOR GFR 0.95 MG/DL (0.55-1.30); FERRITIN 55.5 NG/ML (7.3-270.7); GLOMERULAR FILTRATION RATE > 60.0 (>45); GLUCOSE, FASTING 80 MG/DL (74-106); HDL CHOLESTEROL 82.1 MG/DL (>40); LDL CHOLESTEROL 133.1 MG/DL (<100); MAGNESIUM LEVEL 1.9 MG/DL (1.8-2.4); NON-HDL-C 149.9 MG/DL; POTASSIUM SERUM 3.8 MMOL/L (3.5-5.1); SODIUM LEVEL 140 MMOL/L (136-145); TOTAL PROTEIN 6.5 G/DL (5.7-8.2); TRIGLYCERIDES LEVEL 84 MG/DL (<150)
[2023-04-13 08:12] LABS: APOLIPOPROTEIN B/A-1 RATIO 0.6 ratio (0.0-0.6)
== END ==
LOC: M SFHCADAM 08:34
PROVIDERS: ATTEND Family Medicine
DX: I10 Essential (primary) hypertension (principal); E78.2 Mixed hyperlipidemia

== ENCOUNTER → 2023-09-18 | Outpatient (REF) | payer BC ==
[2023-09-18 13:00] LABS: BASO # 0.1 10^3/uL (0.0-0.2); BASO % 1.3 % (0.0-1.0); EOS # 0.3 10^3/uL (0.0-0.5); EOS % 4.2 % (0.0-3.0); HEMATOCRIT 42.4 % (36.0-47.0); HEMOGLOBIN 14.2 g/dl (12.0-15.5); LYMPH % 32.6 % (24.0-44.0); MEAN CORPUSCULAR HEMOGLOBIN 29.9 pg (27.0-33.0); MEAN CORPUSCULAR HGB CONC 33.5 g/dl (32.0-36.5); MEAN CORPUSCULAR VOLUME 89.3 fl (80.0-96.0); MONO # 0.5 10^3/uL (0.0-0.8); MONO % 8.8 % (2.0-8.0); NEUTROPHILS # 3.2 10^3/uL (1.5-8.5); NEUTROPHILS % 52.8 % (36.0-66.0); PLATELET COUNT, AUTOMATED 327 10^3/uL (150-450); RED BLOOD COUNT 4.75 10^6/uL (4.00-5.40); WHITE BLOOD COUNT 6.1 10^3/uL (4.0-10.0)
[2023-09-18 13:24] LABS: CREATININE, URINE 94.6 MG/DL
[2023-09-18 13:25] LABS: MAU/CREAT RATIO 105.7 MCG/MG (0.0-30.0)
[2023-09-18 13:27] LABS: ALBUMIN 3.4 G/DL (3.2-5.2); ALKALINE PHOSPHATASE 87 U/L (46-116); ALT/SGPT 23 U/L (7.0-40); AST/SGOT 18 U/L (<34); BILIRUBIN,TOTAL 0.6 MG/DL (0.3-1.2); BLOOD UREA NITROGEN 22 MG/DL (9-23); CALCIUM LEVEL 9.4 MG/DL (8.3-10.6); CARBON DIOXIDE LEVEL 29 MMOL/L (20-31); CHLORIDE LEVEL 103 MMOL/L (98-107); CREATININE FOR GFR 0.95 MG/DL (0.55-1.30); GLOMERULAR FILTRATION RATE > 60.0 (>45); GLUCOSE, FASTING 79 MG/DL (74-106); POTASSIUM SERUM 3.7 MMOL/L (3.5-5.1); PTH INTACT 50.8 PG/ML (18.5-88.0); SODIUM LEVEL 142 MMOL/L (136-145); TOTAL PROTEIN 6.7 G/DL (5.7-8.2)
[2023-09-18 13:28] LABS: FERRITIN 57.7 NG/ML (7.3-270.7)
[2023-09-18 13:29] LABS: TOTAL 25(OH) VITAMIN D 38.7 NG/ML (20.0-100.0)
== END ==
LOC: M SFHCADAM 08:09
PROVIDERS: ATTEND Family Medicine
DX: I10 Essential (primary) hypertension (principal); R73.01 Impaired fasting glucose; E55.9 Vitamin D deficiency, unspecified

== ENCOUNTER → 2023-10-25 | Outpatient (CLI) | payer BC | LOC: M WHC 13:05 | PROVIDERS: ATTEND Family Medicine | DX: Z12.31 Encounter for screening mammogram for malignant neoplasm of breast (principal) ==

== ENCOUNTER → 2024-02-16 | Outpatient (REF) | payer BC ==
[~2024-02-16] MED LIST changes: +IRBE150T27 PO; -IRBE150T7 PO
[2024-02-16 13:54] LABS: TOTAL PROTEIN,RANDOM URINE 20.6 MG/DL (0.0-14.0)
[2024-02-16 13:59] LABS: CREATININE,RANDOM URINE 84.7 MG/DL
[2024-02-16 14:07] LABS: C REACTIVE PROTEIN QUANTITATIV < 0.40 MG/DL (<1.0)
[2024-02-16 14:08] LABS: ALBUMIN 3.4 G/DL (3.2-5.2); ALKALINE PHOSPHATASE 81 U/L (46-116); ALT/SGPT 19 U/L (7.0-40); AST/SGOT 15 U/L (<34); BILIRUBIN,TOTAL 0.8 MG/DL (0.3-1.2); BLOOD UREA NITROGEN 28 MG/DL (9-23); CALCIUM LEVEL 9.6 MG/DL (8.3-10.6); CARBON DIOXIDE LEVEL 29 MMOL/L (20-31); CHLORIDE LEVEL 102 MMOL/L (98-107); CHOLESTEROL LEVEL 232 MG/DL (<200); CHOLESTEROL RISK RATIO 3.38 (<5); GLUCOSE, FASTING 89 MG/DL (74-106); HDL CHOLESTEROL 68.6 MG/DL (>40); LDL CHOLESTEROL 146.4 MG/DL (<100); NON-HDL-C 163.4 MG/DL; POTASSIUM SERUM 4.1 MMOL/L (3.5-5.1); SODIUM LEVEL 139 MMOL/L (136-145); TOTAL PROTEIN 6.4 G/DL (5.7-8.2); TRIGLYCERIDES LEVEL 85 MG/DL (<150)
== END ==
LOC: M SFHCADAM 07:53
PROVIDERS: ATTEND Family Medicine
DX: I10 Essential (primary) hypertension (principal); E78.2 Mixed hyperlipidemia

== ENCOUNTER → 2024-02-20 | Outpatient (REF) | payer BC ==
[2024-02-20 16:25] LABS: AMORPHOUS SEDIMENT SMALL (NEGATIVE); APPEARANCE, URINE HAZY (CLEAR); BACTERIA, URINE AUTO NEGATIVE (NEGATIVE); BILIRUBIN, URINE AUTO NEGATIVE (NEGATIVE); BLOOD, URINE BLOOD NEGATIVE (NEGATIVE); COLOR, URINE YELLOW (YELLOW); GLUCOSE, URINE (UA) AUTO NEGATIVE (NEGATIVE); KETONE, URINE AUTO NEGATIVE (NEGATIVE); LEUKOCYTE ESTERASE, URINE AUTO 2+ (NEGATIVE); NITRITE, URINE AUTO NEGATIVE (NEGATIVE); PROTEIN, URINE AUTO NEGATIVE (NEGATIVE); RBC, URINE AUTO 4 /HPF (0-3); SPECIFIC GRAVITY URINE AUTO 1.013 (1.002-1.035); SQUAMOUS EPITHELIAL CELL UR AU 0 /HPF (0-6); UROBILINOGEN, URINE AUTO 0.2 mg/dL (0.0-2.0); WBC, URINE AUTO 63 /HPF (0-3)
== END ==
LOC: M SFHCPLAZ 13:25
PROVIDERS: ATTEND Family Medicine
DX: N39.0 Urinary tract infection, site not specified (principal); E78.2 Mixed hyperlipidemia; I10 Essential (primary) hypertension; R73.01 Impaired fasting glucose; E55.9 Vitamin D deficiency, unspecified

== ENCOUNTER → 2024-07-09 | Outpatient (CLI) | payer BC | LOC: M WHC 09:50 | PROVIDERS: ATTEND Family Medicine | DX: Z13.820 Encounter for screening for osteoporosis (principal); M85.851 Other specified disorders of bone density and structure, right thigh; M85.852 Other specified disorders of bone density and structure, left thigh; M85.88 Other specified disorders of bone density and structure, other site ==

== ENCOUNTER → 2024-07-22 | Outpatient (REF) | payer BC ==
[2024-07-22 14:10] LABS: APPEARANCE, URINE CLEAR (CLEAR); BACTERIA, URINE AUTO NEGATIVE (NEGATIVE); BILIRUBIN, URINE AUTO NEGATIVE (NEGATIVE); BLOOD, URINE BLOOD NEGATIVE (NEGATIVE); COLOR, URINE YELLOW (YELLOW); GLUCOSE, URINE (UA) AUTO NEGATIVE (NEGATIVE); KETONE, URINE AUTO NEGATIVE (NEGATIVE); LEUKOCYTE ESTERASE, URINE AUTO NEGATIVE (NEGATIVE); NITRITE, URINE AUTO NEGATIVE (NEGATIVE); PROTEIN, URINE AUTO NEGATIVE (NEGATIVE); RBC, URINE AUTO 1 /HPF (0-3); SPECIFIC GRAVITY URINE AUTO 1.012 (1.002-1.035); UROBILINOGEN, URINE AUTO 0.2 mg/dL (0.0-2.0); WBC, URINE AUTO 1 /HPF (0-3)
[2024-07-22 14:42] LABS: C REACTIVE PROTEIN QUANTITATIV < 0.40 MG/DL (<1.0)
[2024-07-22 14:44] LABS: ALBUMIN 3.8 G/DL (3.2-5.2); ALKALINE PHOSPHATASE 94 U/L (46-116); ALT/SGPT 20 U/L (7.0-40); AST/SGOT 16 U/L (<34); BILIRUBIN,TOTAL 0.6 MG/DL (0.3-1.2); BLOOD UREA NITROGEN 30 MG/DL (9-23); CALCIUM LEVEL 9.7 MG/DL (8.3-10.6); CARBON DIOXIDE LEVEL 30 MMOL/L (20-31); CHLORIDE LEVEL 103 MMOL/L (98-107); CHOLESTEROL LEVEL 240 MG/DL (<200); CREATININE FOR GFR 1.03 MG/DL (0.55-1.30); FREE T4 1.44 NG/DL (0.89-1.76); GLOMERULAR FILTRATION RATE 57.8 (>45); GLUCOSE, FASTING 91 MG/DL (74-106); HDL CHOLESTEROL 82.7 MG/DL (>40); LDL CHOLESTEROL 143.9 MG/DL (<100); NON-HDL-C 157.3 MG/DL; POTASSIUM SERUM 3.9 MMOL/L (3.5-5.1); PTH INTACT 29.9 PG/ML (18.5-88.0); SODIUM LEVEL 138 MMOL/L (136-145); TOTAL 25(OH) VITAMIN D 53.8 NG/ML (20.0-100.0); TOTAL PROTEIN 6.9 G/DL (5.7-8.2); TRIGLYCERIDES LEVEL 67 MG/DL (<150)
[2024-07-22 15:20] LABS: HEMOGLOBIN A1c 5.2 % (4.0-6.0)
== END ==
LOC: M SFHCPLAZ 08:47
PROVIDERS: ATTEND Family Medicine
DX: E78.2 Mixed hyperlipidemia (principal); I10 Essential (primary) hypertension; R73.01 Impaired fasting glucose; E55.9 Vitamin D deficiency, unspecified

== ENCOUNTER → 2024-07-25 | Outpatient (REF) | payer BC | LOC: M SFHCPLAZ 13:16 | PROVIDERS: ATTEND Family Medicine | DX: E78.2 Mixed hyperlipidemia (principal); I10 Essential (primary) hypertension; R73.01 Impaired fasting glucose; M81.0 Age-related osteoporosis without current pathological fracture; Z53.9 Procedure and treatment not carried out, unspecified reason ==

== ENCOUNTER → 2024-12-16 | Outpatient (CLI) | payer BC | LOC: M WHC 10:58 | PROVIDERS: ATTEND Family Medicine | DX: Z12.31 Encounter for screening mammogram for malignant neoplasm of breast (principal) ==

== ENCOUNTER → 2025-02-14 | Outpatient (REF) | payer BC ==
[2025-02-14 14:31] LABS: BASO # 0.1 10^3/uL (0.0-0.2); BASO % 1.1 % (0.0-1.0); EOS # 0.2 10^3/uL (0.0-0.5); EOS % 3.7 % (0.0-3.0); HEMATOCRIT 43.7 % (36.0-47.0); HEMOGLOBIN 14.4 g/dl (12.0-15.5); LYMPH # 1.8 10^3/uL (1.5-5.0); LYMPH % 29.9 % (24.0-44.0); MEAN CORPUSCULAR HEMOGLOBIN 29.8 pg (27.0-33.0); MEAN CORPUSCULAR VOLUME 90.3 fl (80.0-96.0); MONO # 0.6 10^3/uL (0.0-0.8); MONO % 9.1 % (2.0-8.0); NEUTROPHILS # 3.4 10^3/uL (1.5-8.5); NEUTROPHILS % 55.9 % (36.0-66.0); PLATELET COUNT, AUTOMATED 320 10^3/uL (150-450); RED BLOOD COUNT 4.84 10^6/uL (4.00-5.40); WHITE BLOOD COUNT 6.2 10^3/uL (4.0-10.0)
[2025-02-14 14:34] LABS: FREE T4 1.33 NG/DL (0.89-1.76)
[2025-02-14 14:35] LABS: THYROID STIMULATING HORMONE 3.182 uIU/ML (0.55-4.78)
[2025-02-14 14:36] LABS: ALBUMIN 3.7 G/DL (3.2-5.2); ALKALINE PHOSPHATASE 84 U/L (35-104); ALT/SGPT 25 U/L (7.0-40); AST/SGOT 17 U/L (<34); BILIRUBIN,TOTAL 0.7 MG/DL (0.3-1.2); BLOOD UREA NITROGEN 27 MG/DL (9-23); CALCIUM LEVEL 10.2 MG/DL (8.3-10.6); CARBON DIOXIDE LEVEL 31 MMOL/L (20-31); CHLORIDE LEVEL 100 MMOL/L (98-107); CHOLESTEROL LEVEL 264 MG/DL (<200); CHOLESTEROL RISK RATIO 3.09 (<5); CREATININE FOR GFR 1.16 MG/DL (0.55-1.30); FERRITIN 102.6 NG/ML (7.3-270.7); GLOMERULAR FILTRATION RATE 53.3 (>45); GLUCOSE, FASTING 84 MG/DL (74-106); HDL CHOLESTEROL 85.2 MG/DL (>40); LDL CHOLESTEROL 160.8 MG/DL (<100); NON-HDL-C 178.8 MG/DL; POTASSIUM SERUM 4.2 MMOL/L (3.5-5.1); SODIUM LEVEL 140 MMOL/L (136-145); TOTAL PROTEIN 7.1 G/DL (5.7-8.2); TRIGLYCERIDES LEVEL 90 MG/DL (<150)
[2025-02-14 14:37] LABS: HEMOGLOBIN A1c 5.1 % (4.0-6.0)
[2025-02-14 14:39] LABS: THYROID PEROXIDASE ANTIBODY < 28.0 U/ML (<60.0)
[2025-02-17 11:54] LABS: INSULIN LEVEL 7.1 uIU/mL (<=18.4)
[2025-02-18 02:27] LABS: TISSUE TRANSGLUTAMINASE IgA < 1.0 U/mL (<15.0)
== END ==
LOC: M SFHCPLAZ 08:13
PROVIDERS: ATTEND Family Medicine
DX: E78.2 Mixed hyperlipidemia (principal); I10 Essential (primary) hypertension; R73.01 Impaired fasting glucose; M81.0 Age-related osteoporosis without current pathological fracture

== ENCOUNTER → 2025-07-24 | Outpatient (CLI) | payer BC ==
[~2025-07-24] MED LIST changes: +HYDR12.510 PO; -HYDR12CA PO
[2025-07-24 15:49] LABS: BASO # 0.1 10^3/uL (0.0-0.2); BASO % 1.0 % (0.0-1.0); EOS # 0.3 10^3/uL (0.0-0.5); EOS % 4.6 % (0.0-3.0); LYMPH # 2.1 10^3/uL (1.5-5.0); LYMPH % 31.6 % (24.0-44.0); MONO # 0.7 10^3/uL (0.0-0.8); MONO % 9.7 % (2.0-8.0); NEUTROPHILS # 3.5 10^3/uL (1.5-8.5); NEUTROPHILS % 53.0 % (36.0-66.0); PLATELET COUNT, AUTOMATED 327 10^3/uL (150-450)
[2025-07-24 16:15] LABS: CREATININE, URINE 98.1 MG/DL; MALB URINE SIEMENS 72.0 MG/L; MAU/CREAT RATIO 73.3 MCG/MG (0.0-30.0)
[2025-07-24 16:59] LABS: ESTIMATED AVERAGE GLUCOSE 111.0 MG/DL (60-110)
[2025-07-24 19:21] LABS: ALT/SGPT 19.0 U/L (7.0-40); AST/SGOT 21.0 U/L (<34); CALCIUM LEVEL 9.9 MG/DL (8.3-10.6); CARBON DIOXIDE LEVEL 30.0 MMOL/L (20-31); CHLORIDE LEVEL 103.0 MMOL/L (98-107); CHOLESTEROL LEVEL 263.0 MG/DL (<200); CHOLESTEROL RISK RATIO 2.84 (<5); CREATININE FOR GFR 1.05 MG/DL (0.55-1.30); GLOMERULAR FILTRATION RATE 59.7 (>45); LDL CHOLESTEROL 156.6 MG/DL (<100); NON-HDL-C 170.6 MG/DL; POTASSIUM SERUM 4.7 MMOL/L (3.5-5.1); PTH INTACT 44.0 PG/ML (18.5-88.0); SODIUM LEVEL 140.0 MMOL/L (136-145); TRIGLYCERIDES LEVEL 70.0 MG/DL (<150)
[2025-07-24 19:23] LABS: TOTAL 25(OH) VITAMIN D 58.6 NG/ML (20.0-100.0)
[2025-07-24 19:24] LABS: FREE T4 1.34 NG/DL (0.89-1.76)
== END ==
LOC: M LABDRWAD 07:51
PROVIDERS: ATTEND Family Medicine
DX: I10 Essential (primary) hypertension (principal); E78.2 Mixed hyperlipidemia; E55.9 Vitamin D deficiency, unspecified; Q61.9 Cystic kidney disease, unspecified; R73.01 Impaired fasting glucose